=== PATIENT | male | born 1970 | race Two or more races ===

== ENCOUNTER 2020-05-02 12:05 | Inpatient (IN) | payer BC ==
[~2020-05-02] VITALS: Ht 167.6 cm; Wt 74.6 kg
--- NOTE | 2020-05-02 12:36 | NUR ---
PT IS A 49M COMPLAINING OF SORE THROAT, BACK PAIN, RASH AND FEVER X 4 DAYS. HE WAS SENT FROM URGENT CARE. THE RASH STARTED 3 DAYS AGO AND IS ON HIS FACE AND TRUNK. SPOUSE AT BEDSIDE, PROVIDER AT BEDSIDE FOR EVAL AND POC. BP AND SP02 MONITORS IN PLACE. CALL LIGHT WITHIN REACH.
[2020-05-02] MEDS ORDERED: COLE3.755 BLADIN (12:40)
[2020-05-02 13:00] LABS: BASOPHILS % (AUTO) 1 % (0-1); EOSINOPHILS % (AUTO) 0 % (1-7); LYMPHOCYTES % (AUTO) 16 % (22-44); MEAN CORPUSCULAR HEMOGLOBIN 31.4 pg (27.5-34.5); MEAN CORPUSCULAR HGB CONC 35.5 g/dL (33.2-36.2); MEAN PLATELET VOLUME 10.4 fL (7.4-10.4); MONOCYTES % (AUTO) 4 % (2-9); NEUTROPHILS % (AUTO) 79 % (42-75); PLATELET COUNT 102 x10^3/uL (130-400); RED BLOOD COUNT 4.94 x10^6/uL (4.38-5.82); RED CELL DISTRIBUTION WIDTH 13.8 % (9.4-14.8)
--- NOTE | 2020-05-02 13:00 | NUR ---
BREAK RN: PIV PLACED, IVF RUNNING. 2 SETS BLOOD CX COLLECTED BY SUPERINTENDENT OVERHEAD DISTRIBUTION. PT CONNECTED TO MONITORING. CALL LIGHT IN REACH. FAMILY AT BEDSIDE,.
[2020-05-02 13:01] LABS: MD NO
[2020-05-02 13:07] LABS: ALANINE AMINOTRANSFERASE 165 U/L (12-78); ALBUMIN 3.9 g/dL (3.4-5.0); ANION GAP 8 mmol/L (5-15); CALCIUM 8.4 mg/dL (8.5-10.1); CHLORIDE 99 mmol/L (98-107); CREATININE 0.99 mg/dL (0.7-1.3)
[2020-05-02 13:09] LABS: ALKALINE PHOSPHATASE 86 U/L (45-117); BILIRUBIN,TOTAL 0.4 mg/dL (0.2-1.0); TOTAL PROTEIN 7.5 g/dL (6.4-8.2)
[2020-05-02] MEDS ORDERED: SODIUM CHLORIDE FLUSH 10ML SYR IVF ONE (13:30)
[2020-05-02] MEDS ORDERED: SODIUM CHLORIDE 0.9% 1,000ML IVBOLUS ONE ×2 (13:30→16:30)
--- NOTE | 2020-05-02 13:53 | NUR ---
PT COMPLAINING OF 10/10 BACK PAIN. URINE COLLECTED AND SENT. MD NOTIFED PTS WANT OF PAIN MEDS. SPOUSE AT BEDSIDE, VITALS UPDATED. CALL LIGHT WITHIN REACH.
[2020-05-02 14:01] LABS: MICROSCOPIC AUTO
[2020-05-02] MEDS ORDERED: MORPHINE SULFATE 4 MG/ML, 1ML ONE ×2 (14:06→18:15)
[2020-05-02] MEDS ORDERED: ONDANSETRON 2MG/ML, 2ML ONE (14:06)
[2020-05-02] MEDS: MORPHINE SULFATE 4 MG/ML, 1ML IVPush PRN ×2 (14:08→18:18)
--- NOTE | 2020-05-02 14:11 | NUR ---
PT MEDICATED PER ORDERS, CALL LIGHT WITHIN REACH
[2020-05-02] MEDS ORDERED: CEFTRIAXONE PMX 1GM/50ML 50 ML IVPB ONE (14:30)
[2020-05-02] MEDS ORDERED: ONDANSETRON 2MG/ML, 2ML IVPush ONE (14:30)
[2020-05-02] MEDS ORDERED: CEFTRIAXONE PMX 1GM/50ML 50 ML ONE ×2 (14:33→21:16)
--- NOTE | 2020-05-02 15:15 | NUR ---
Antibiotics infused, pt states pain has resolved after morphine. Spouse at bedside. Call light within reach.
[2020-05-02] MEDS ORDERED: IBUPROFEN 600 MG TABLET ONE (15:20)
--- NOTE | 2020-05-02 15:25 | NUR ---
PT TEMP 102.7 MD NOTIFIED, COMPLETED COVID SWAB, MEDICATED PER EMAR. CALL LIGHT WITHIN REAWCH.
[2020-05-02] MEDS ORDERED: IBUPROFEN 600 MG TABLET PO ONE (15:30)
--- NOTE | 2020-05-02 16:08 | NUR ---
Pt pain is better but his temp is still 103.0. notified md. Will medicate per emar. spouse at bedside and call light within reach. all monitors in place.
[2020-05-02] MEDS ORDERED: ACETAMINOPHEN 500 MG TABLET PO ONE (16:30)
[2020-05-02] MEDS ORDERED: ACETAMINOPHEN 500 MG TABLET ONE (16:39)
--- NOTE | 2020-05-02 17:44 | NUR ---
PROVIDER AT BEDSIDE TO DISCUSS POC. VITALS UPDATED, SPOUSE AT BEDSIDE, CALL LIGHT WITHIN REACH.
--- NOTE | 2020-05-02 18:17 | NUR ---
PT STATES HIS BACK PAIN IS BACK UP TO AN 8/10. MEDICATED PER EMAR. CALL LIGHT WITHIN REACH
[2020-05-02] MEDS ORDERED: SODIUM CHLORIDE 0.9% 1,000 ML IV ONE (18:30)
--- NOTE | 2020-05-02 18:56 | NUR ---
REPORT FROM RICO SALCIDO
--- NOTE | 2020-05-02 18:56 | NUR ---
SOBEIDA CLAUDIO DELIVERED. HOSPITALIST AT BEDSIDE.
[2020-05-02] MEDS ORDERED: SODIUM CHLORIDE FLUSH 10ML SYR IVF PRN (19:00)
--- NOTE | 2020-05-02 19:01 | NUR ---
HOSPITALIST AT BEDSIDE
--- NOTE | 2020-05-02 19:02 | NUR ---
PT SITTING UPRIGHT ON ADRIANNE GOMEZ, VSS. PT EATING DINNER TRAY. PT DENIES ANY ADDITIONAL NEEDS AT THIS TIME. CALL LIGHT AND PERSONAL BELONGINGS WITHIN REACH. SPOUSE AT BEDSIDE.
--- NOTE | 2020-05-02 20:05 | NUR ---
PT SITTING UPRIGHT ON ADRIANNE GOMEZ, VSSelene. PT DENIES ANY ADDITIONAL NEEDS AT THIS TIME. CALL LIGHT AND PERSONAL BELONGINGS WITHIN REACH. SPOUSE AT BEDSIDE.
--- NOTE | 2020-05-02 20:29 | NUR ---
Pt to be admitted to 3N, room 338. Report called to HIRAM.
[2020-05-02] MEDS ORDERED: CEFTRIAXONE PMX 1GM/50ML 50 ML IV ONE (20:30)
[2020-05-02] MEDS ORDERED: DOCUSATE 100 MG CAPSULE PO PRN (22:00)
[2020-05-02] MEDS ORDERED: LIDODERM 5% PATCH TD PRN (22:00)
[2020-05-02] MEDS ORDERED: MELATONIN 5 MG TABLET PO PRN (22:00)
[2020-05-02] MEDS ORDERED: PHARMACY MAY ADJ FOR RENAL FX MC PRN (22:00)
[2020-05-02] MEDS ORDERED: LABETALOL 5MG/ML, 20ML IVPush PRN (22:00)
[2020-05-02 22:53] VITALS: BP 111/69
[2020-05-03] MEDS: HEPARIN 5,000 UNITS/ML, 1ML SQ SCH ×3 (00:32→15:55)
[2020-05-03] MEDS: LACTATED RINGERS 1,000 ML IV SCH ×3 (00:33→15:55)
[2020-05-03 01:27] VITALS: BP 110/71
[2020-05-03 05:33] LABS: BASOPHILS % (AUTO) 0 % (0-1); EOSINOPHILS % (AUTO) 0 % (1-7); LYMPHOCYTES % (AUTO) 31 % (22-44); MEAN CORPUSCULAR HEMOGLOBIN 30.8 pg (27.5-34.5); MEAN CORPUSCULAR HGB CONC 35.3 g/dL (33.2-36.2); MEAN PLATELET VOLUME 10.3 fL (7.4-10.4); MONOCYTES % (AUTO) 5 % (2-9); NEUTROPHILS % (AUTO) 63 % (42-75); PLATELET COUNT 91 x10^3/uL (130-400); RED BLOOD COUNT 4.51 x10^6/uL (4.38-5.82); RED CELL DISTRIBUTION WIDTH 13.6 % (9.4-14.8)
[2020-05-03 05:35] LABS: ALANINE AMINOTRANSFERASE 222 U/L (12-78); ALBUMIN 2.9 g/dL (3.4-5.0); ANION GAP 7 mmol/L (5-15); C-REACTIVE PROTEIN, QUANT 0.28 mg/dL (0.02-0.49); CALCIUM 7.5 mg/dL (8.5-10.1); CHLORIDE 102 mmol/L (98-107); CREATININE 0.66 mg/dL (0.7-1.3)
[2020-05-03 05:36] LABS: D-DIMER 3.03 ug/mlFEU (0.00-0.52); INTERNATIONAL NORMALIZED RATIO 1.07 (0.93-1.1); PROTHROMBIN TIME 11.4 Seconds (9.6-11.5)
[2020-05-03 05:39] LABS: HCT (SEDRATE) 39.3 % (39.2-51.8)
[2020-05-03] MEDS: NYSTATIN 500,000 UNITS/5 ML UDC PO SCH ×4 (05:47→20:30)
[2020-05-03 05:54] LABS: ALKALINE PHOSPHATASE 117 U/L (45-117); BILIRUBIN,TOTAL 0.4 mg/dL (0.2-1.0); CREATINE KINASE, TOTAL 1328 U/L (39-308); TOTAL PROTEIN 6.2 g/dL (6.4-8.2); TROPONIN I 0.023 ng/mL (0.000-0.045)
[2020-05-03 06:33] VITALS: BP 128/83
[2020-05-03 06:48] LABS: MD SCAN
[2020-05-03] MEDS ORDERED: COLESEVELAM HCL BLADIN SCH (09:00)
[2020-05-03 11:56] VITALS: BP 146/77
[2020-05-03] MEDS ORDERED: GUAIFENESIN/DM 200-20MG, 10ML UDC ONE (20:13)
[2020-05-03 20:22] VITALS: BP 135/82
[2020-05-03] MEDS: ACETAMINOPHEN 325 MG TABLET PO PRN (20:30)
[2020-05-03] MEDS: GUAIFENESIN/DM 100-10MG, 5ML UDC PO PRN (20:31)
[2020-05-03] MEDS: CEFTRIAXONE PMX 2GM/50ML 50 ML IVPB SCH (20:32)
[2020-05-04] MEDS: LACTATED RINGERS 1,000 ML IV SCH ×3 (01:04→16:30)
[2020-05-04] MEDS: HEPARIN 5,000 UNITS/ML, 1ML SQ SCH ×3 (01:04→16:47)
[2020-05-04 01:08] VITALS: BP 125/82
[2020-05-04 05:57] LABS: HCT (SEDRATE) 39.2 % (39.2-51.8)
[2020-05-04] MEDS: NYSTATIN 500,000 UNITS/5 ML UDC PO SCH ×4 (06:10→21:32)
[2020-05-04] MEDS: GUAIFENESIN/DM 100-10MG, 5ML UDC PO PRN ×2 (06:11→14:42)
[2020-05-04 06:12] LABS: BASOPHILS % (AUTO) 0 % (0-1); EOSINOPHILS % (AUTO) 0 % (1-7); LYMPHOCYTES % (AUTO) 38 % (22-44); MEAN CORPUSCULAR HEMOGLOBIN 31.2 pg (27.5-34.5); MEAN CORPUSCULAR HGB CONC 35.7 g/dL (33.2-36.2); MEAN PLATELET VOLUME 9.9 fL (7.4-10.4); MONOCYTES % (AUTO) 9 % (2-9); NEUTROPHILS % (AUTO) 53 % (42-75); PLATELET COUNT 99 x10^3/uL (130-400); RED BLOOD COUNT 4.53 x10^6/uL (4.38-5.82)
[2020-05-04 06:14] LABS: CHLORIDE 99 mmol/L (98-107)
[2020-05-04 06:33] LABS: MD NO
[2020-05-04 06:41] LABS: ALANINE AMINOTRANSFERASE 170 U/L (12-78); ALBUMIN 3.3 g/dL (3.4-5.0); ALKALINE PHOSPHATASE 113 U/L (45-117); ANION GAP 6 mmol/L (5-15); BILIRUBIN,TOTAL 0.5 mg/dL (0.2-1.0); CALCIUM 8.6 mg/dL (8.5-10.1); CREATINE KINASE, TOTAL 1320 U/L (39-308); CREATININE 0.69 mg/dL (0.7-1.3); TOTAL PROTEIN 6.5 g/dL (6.4-8.2)
[2020-05-04 06:51] VITALS: BP 126/78
[2020-05-04 13:41] VITALS: BP 144/80
[2020-05-04 20:03] VITALS: BP 134/80
[2020-05-04] MEDS: ACETAMINOPHEN 325 MG TABLET PO PRN (21:32)
[2020-05-04] MEDS: CEFTRIAXONE PMX 2GM/50ML 50 ML IVPB SCH (21:32)
[2020-05-05] MEDS: LACTATED RINGERS 1,000 ML IV SCH ×2 (01:10→08:37)
[2020-05-05] MEDS: HEPARIN 5,000 UNITS/ML, 1ML SQ SCH ×2 (01:10→08:37)
[2020-05-05 01:24] VITALS: BP 108/67
[2020-05-05 05:03] LABS: BASOPHILS % (AUTO) 0 % (0-1); EOSINOPHILS % (AUTO) 0 % (1-7); HCT (SEDRATE) 39.2 % (39.2-51.8); LYMPHOCYTES % (AUTO) 30 % (22-44); MEAN CORPUSCULAR HEMOGLOBIN 31.3 pg (27.5-34.5); MEAN CORPUSCULAR HGB CONC 35.6 g/dL (33.2-36.2); MEAN PLATELET VOLUME 9.2 fL (7.4-10.4); MONOCYTES % (AUTO) 15 % (2-9); NEUTROPHILS % (AUTO) 54 % (42-75); PLATELET COUNT 116 x10^3/uL (130-400); RED BLOOD COUNT 4.47 x10^6/uL (4.38-5.82); RED CELL DISTRIBUTION WIDTH 13.4 % (9.4-14.8)
[2020-05-05 05:12] LABS: MD NO
[2020-05-05 05:14] LABS: ALBUMIN 3.4 g/dL (3.4-5.0); ANION GAP 6 mmol/L (5-15); CALCIUM 8.8 mg/dL (8.5-10.1); CHLORIDE 101 mmol/L (98-107)
[2020-05-05 05:28] LABS: D-DIMER 1.23 ug/mlFEU (0.00-0.52); PROTHROMBIN TIME 10.7 Seconds (9.6-11.5)
[2020-05-05 05:33] LABS: ALANINE AMINOTRANSFERASE 174 U/L (12-78); ALKALINE PHOSPHATASE 124 U/L (45-117); BILIRUBIN,TOTAL 0.9 mg/dL (0.2-1.0); C-REACTIVE PROTEIN, QUANT 0.16 mg/dL (0.02-0.49); CREATINE KINASE, TOTAL 890 U/L (39-308); CREATININE 0.76 mg/dL (0.7-1.3); TOTAL PROTEIN 6.6 g/dL (6.4-8.2)
[2020-05-05] MEDS: NYSTATIN 500,000 UNITS/5 ML UDC PO SCH ×2 (06:12→11:00)
[2020-05-05 06:54] VITALS: BP 107/71
[2020-05-05] MEDS: GUAIFENESIN/DM 100-10MG, 5ML UDC PO PRN (08:36)
== END 2020-05-05 12:32 | disposition home or self-care (01) | DRG 872 ==
LOC: ED 12:58 → EDIP 18:16 → 3N 21:45 → 4EST 22:49 → 4WST 05-04 14:57 → DCLOUNGE 05-05 12:30
PROVIDERS: ADMIT Family Medicine; ATTEND Hospitalist
DX: A41.9 Sepsis, unspecified organism (principal); B37.0 Candidal stomatitis; J06.9 Acute upper respiratory infection, unspecified; E78.5 Hyperlipidemia, unspecified; D69.6 Thrombocytopenia, unspecified; E87.6 Hypokalemia; R63.0 Anorexia; Z20.822 Contact with and (suspected) exposure to COVID-19; Z82.3 Family history of stroke; Z82.49 Family history of ischemic heart disease and other diseases of the circulatory system; Z68.26 Body mass index [BMI] 26.0-26.9, adult; Z88.6 Allergy status to analgesic agent
CPT/HCPCS: 36415; 80053; 80074; 81001; 82550; 82728; 83036; 83605; 83615; 84145; 84484; 85025; 85379; 85384; 85610; 85651; 85730; 86140; 86592; 86765; 86780; 87040; 87635; 87806; 96361; 96365; 96375; 99291; G0378; J0696; J1644; J2405; G0475; J2270; J7030; J7120; U0003

== ENCOUNTER 2020-05-16 18:10 | Inpatient (IN) | payer BC ==
[~2020-05-16] VITALS: Ht 167.6 cm; Wt 71.4 kg
[~2020-05-16 18:10] MED LIST: COLE3.755 BLADIN
--- NOTE | 2020-05-16 18:19 | NUR ---
EKG TRIAGE, RESP ISO
--- NOTE | 2020-05-16 18:50 | NUR ---
PT TO ROOM 33 W/ C/O SOB, COUGH, FEVER, CP X 3 DAYS. PT DENIES ANY CLOSE CONTACT TO COVID POSITIVE PERSON. PT RESTING ON [facility]. NADN. MONITORS APPLIED.
[2020-05-16] MEDS ORDERED: SODIUM CHLORIDE FLUSH 10ML SYR IVF ONE (19:00)
[2020-05-16] MEDS ORDERED: SODIUM CHLORIDE 0.9% 1,000ML IVBOLUS ONE (19:00)
[2020-05-16 19:39] LABS: MEAN CORPUSCULAR HEMOGLOBIN 31.7 pg (27.5-34.5); MEAN CORPUSCULAR HGB CONC 35.5 g/dL (33.2-36.2); MEAN PLATELET VOLUME 9.1 fL (7.4-10.4); PLATELET COUNT 176 x10^3/uL (130-400); RED BLOOD COUNT 3.97 x10^6/uL (4.38-5.82); RED CELL DISTRIBUTION WIDTH 14.2 % (9.4-14.8)
[2020-05-16 19:42] LABS: ALANINE AMINOTRANSFERASE 123 U/L (12-78); ALBUMIN 2.8 g/dL (3.4-5.0); ANION GAP 8 mmol/L (5-15); CALCIUM 7.9 mg/dL (8.5-10.1); CHLORIDE 97 mmol/L (98-107); CREATININE 0.86 mg/dL (0.7-1.3)
[2020-05-16 19:44] LABS: ALKALINE PHOSPHATASE 268 U/L (45-117); BILIRUBIN,TOTAL 1.8 mg/dL (0.2-1.0); TOTAL PROTEIN 6.8 g/dL (6.4-8.2)
--- NOTE | 2020-05-16 19:52 | NUR ---
PT RESTING ON GURNEY. NADN. SMITH.
[2020-05-16 19:56] LABS: MD YES
[2020-05-16 20:04] LABS: BAND#(MANUAL) 0.38 x10^3/uL; BANDS%(MANUAL) 4 % (0-7); LYMPH#(MANUAL) 0.75 x10^3/uL (1-3.4); LYMPHS% (MANUAL) 8 % (22-44); MONOS#(MANUAL) 0.56 x10^3/uL (0.3-2.7); MONOS% (MANUAL) 6 % (2-9); REACTIVE LYMPHS # (MANUAL) 2.16 x10^3/uL (0-0); REACTIVE LYMPHS % (MANUAL) 23 % (0-0); SEG#(MANUAL) 5.55 x10^3/uL (1.8-6.8); SEGS% (MANUAL) 59 % (42-75)
[2020-05-16 20:05] LABS: <RBC MORPHOLOGY> NORMAL
[2020-05-16 20:06] LABS: <PLATELET ESTIMATE> ADEQUATE; <PLT MORPHOLOGY> NORMAL PLT MORPH
--- NOTE | 2020-05-16 20:39 | NUR ---
PT RESTING ON JASON. NADN. GAS. US AT BEDSIDE.
--- NOTE | 2020-05-16 20:50 | NUR ---
REPORT FROM [facility] TRANSFER OF CARE AT THIS TIME
--- NOTE | 2020-05-16 20:51 | NUR ---
REPORT GIVEN TO LOLY BROWER.
--- NOTE | 2020-05-16 21:22 | NUR ---
ERP AT BEDSIDE FOR RECHECK
--- NOTE | 2020-05-16 21:41 | NUR ---
DR. HAM AT BEDSIDE FOR POC AT THIS TIME
[2020-05-16] MEDS ORDERED: ONDANSETRON 2MG/ML, 2ML IVPush PRN ×2 (22:00→22:30)
[2020-05-16] MEDS ORDERED: MORPHINE SULFATE 4 MG/ML, 1ML IVPush PRN (22:00)
[2020-05-16] MEDS ORDERED: SODIUM CHLORIDE 0.9% 1,000 ML IV ONE (22:00)
[2020-05-16] MEDS ORDERED: SODIUM CHLORIDE FLUSH 10ML SYR IVF PRN (22:00)
[2020-05-16 22:02] LABS: BILIRUBIN, DIRECT 1.2 mg/dL (0.1-0.2); BILIRUBIN,INDIRECT 0.5 mg/dL (0.0-2.0); BILIRUBIN,TOTAL 1.7 mg/dL (0.2-1.0)
--- NOTE | 2020-05-16 22:02 | NUR ---
PT RESTING ON GURNEY DENIES NEEDS AT THIS TIME, STS DOES NOT WANT PAIN MEDICATION. PT EDUCATED TO CALL IF HE CHANGES HIS MIND.
[2020-05-16] MEDS ORDERED: DOCUSATE 100 MG CAPSULE PO PRN (22:30)
[2020-05-16] MEDS ORDERED: OXYcodone IR 5MG TABLET PO PRN (22:30)
[2020-05-16] MEDS ORDERED: BISACODYL 10 MG SUPP PR PRN (22:30)
[2020-05-16] MEDS ORDERED: PROMETHAZINE 25 MG/ML, 1ML IM PRN (22:30)
[2020-05-16] MEDS ORDERED: morphine SULFATE 10 MG/ML, 1ML IVPush PRN (22:30)
[2020-05-16] MEDS ORDERED: POLYETHYLENE GLYCOL 17 GM PACKET PO PRN (22:30)
--- NOTE | 2020-05-16 22:40 | NUR ---
REPORT CALLED TO TARYN VALDEZ READY FOR TRANSFER TO [facility]
[2020-05-16] MEDS ORDERED: POTASSIUM CHLORIDE 40 MEQ in SODIUM CHLORIDE 0.9% 500 ML IV ONE (23:00)
[2020-05-16 23:05] VITALS: BP 140/86
[2020-05-16] MEDS: SODIUM CHLORIDE 0.9% 1,000 ML IV SCH (23:41)
[2020-05-17 03:30] VITALS: BP 143/88
[2020-05-17 06:13] LABS: MEAN CORPUSCULAR HEMOGLOBIN 32.2 pg (27.5-34.5); MEAN CORPUSCULAR HGB CONC 35.4 g/dL (33.2-36.2); MEAN PLATELET VOLUME 9.2 fL (7.4-10.4); PLATELET COUNT 188 x10^3/uL (130-400); RED BLOOD COUNT 3.97 x10^6/uL (4.38-5.82); RED CELL DISTRIBUTION WIDTH 13.9 % (9.4-14.8)
[2020-05-17 06:21] LABS: CHLORIDE 103 mmol/L (98-107)
[2020-05-17 06:33] LABS: ANION GAP 4 mmol/L (5-15); CALCIUM 8.1 mg/dL (8.5-10.1); CREATININE 0.66 mg/dL (0.7-1.3)
[2020-05-17 06:34] LABS: ALANINE AMINOTRANSFERASE 144 U/L (12-78); ALBUMIN 2.7 g/dL (3.4-5.0); ALKALINE PHOSPHATASE 274 U/L (45-117); BILIRUBIN,TOTAL 2.1 mg/dL (0.2-1.0); CHOL/HDL RATIO 2.3; CHOLESTEROL, TOTAL 110 mg/dL (140-239); HDL CHOL % 44 % (26-37); HDL CHOLESTEROL (DIRECT) 48 mg/dL (40-60); LDL CHOLESTEROL,CALCULATED 32 mg/dL (54-169); LDL/HDL RATIO 0.7 (0.5-3.0); TRIGLYCERIDES 152 mg/dL (50-200); VLDL CHOLESTEROL 30 mg/dL (0-25)
[2020-05-17 07:05] VITALS: BP 148/78
[2020-05-17 07:44] LABS: MD YES
[2020-05-17 07:45] LABS: BAND#(MANUAL) 0.48 x10^3/uL; BANDS%(MANUAL) 5 % (0-7)
[2020-05-17 07:47] LABS: MONOS#(MANUAL) 0.67 x10^3/uL (0.3-2.7); MONOS% (MANUAL) 7 % (2-9); SEG#(MANUAL) 4.47 x10^3/uL (1.8-6.8); SEGS% (MANUAL) 47 % (42-75)
[2020-05-17 07:48] LABS: <PLATELET ESTIMATE> ADEQUATE; <PLT MORPHOLOGY> NORMAL PLT MORPH; <RBC MORPHOLOGY> NORMAL; LYMPH#(MANUAL) 3.33 x10^3/uL (1-3.4); LYMPHS% (MANUAL) 35 % (22-44); REACTIVE LYMPHS # (MANUAL) 0.57 x10^3/uL (0-0); REACTIVE LYMPHS % (MANUAL) 6 % (0-0); SMUDGE CELLS 1+
[2020-05-17] MEDS: SODIUM CHLORIDE 0.9% 1,000 ML IV SCH ×2 (08:49→21:07)
[2020-05-17 13:32] VITALS: BP 145/79
[2020-05-17] MEDS ORDERED: ACETAMINOPHEN 325 MG TABLET ONE (13:33)
[2020-05-17] MEDS: ACETAMINOPHEN 325 MG TABLET PO PRN (13:35)
[2020-05-17] MEDS: PIPERACILLIN/TAZO/PMX 3.375GM 50 ML IV SCH ×2 (14:18→19:51)
[2020-05-17] MEDS ORDERED: GADOTERATE 10 MMOL/20ML SYR ONE (17:37)
[2020-05-17 20:19] VITALS: BP 138/65
[2020-05-17 20:52] VITALS: BP 149/88
[2020-05-17] MEDS ORDERED: ACETAMINOPHEN 500 MG TABLET PO ONE (21:00)
[2020-05-17 22:59] LABS: MEAN CORPUSCULAR HEMOGLOBIN 31.3 pg (27.5-34.5); MEAN CORPUSCULAR HGB CONC 35.6 g/dL (33.2-36.2); MEAN PLATELET VOLUME 9.2 fL (7.4-10.4); PLATELET COUNT 191 x10^3/uL (130-400); RED BLOOD COUNT 3.73 x10^6/uL (4.38-5.82); RED CELL DISTRIBUTION WIDTH 13.9 % (9.4-14.8)
[2020-05-17 23:08] LABS: ALANINE AMINOTRANSFERASE 175 U/L (12-78); ALBUMIN 2.7 g/dL (3.4-5.0); ANION GAP 8 mmol/L (5-15); CALCIUM 7.4 mg/dL (8.5-10.1); CHLORIDE 98 mmol/L (98-107); CREATININE 0.78 mg/dL (0.7-1.3)
[2020-05-17 23:10] LABS: ALKALINE PHOSPHATASE 310 U/L (45-117); BILIRUBIN,TOTAL 2.3 mg/dL (0.2-1.0); TOTAL PROTEIN 6.7 g/dL (6.4-8.2)
[2020-05-17 23:23] LABS: MD YES
[2020-05-17 23:27] LABS: <RBC MORPHOLOGY> NORMAL; BAND#(MANUAL) 0.55 x10^3/uL; BANDS%(MANUAL) 5 % (0-7); LYMPH#(MANUAL) 2.09 x10^3/uL (1-3.4); LYMPHS% (MANUAL) 19 % (22-44); MONOS% (MANUAL) 10 % (2-9); REACTIVE LYMPHS # (MANUAL) 0.66 x10^3/uL (0-0); REACTIVE LYMPHS % (MANUAL) 6 % (0-0); SEGS% (MANUAL) 60 % (42-75)
[2020-05-17 23:28] LABS: <PLATELET ESTIMATE> ADEQUATE; <PLT MORPHOLOGY> NORMAL PLT MORPH; SMUDGE CELLS 1+
[2020-05-18 01:03] VITALS: BP 123/68
[2020-05-18] MEDS: SODIUM CHLORIDE 0.9% 1,000 ML IV SCH (02:00)
[2020-05-18] MEDS: PIPERACILLIN/TAZO/PMX 3.375GM 50 ML IV SCH ×4 (02:30→22:11)
[2020-05-18 05:45] LABS: ALBUMIN 2.7 g/dL (3.4-5.0); ANION GAP 9 mmol/L (5-15); CALCIUM 7.7 mg/dL (8.5-10.1); CHLORIDE 99 mmol/L (98-107)
[2020-05-18 05:49] LABS: ALANINE AMINOTRANSFERASE 182 U/L (12-78); ALKALINE PHOSPHATASE 301 U/L (45-117); BILIRUBIN,TOTAL 2.4 mg/dL (0.2-1.0); CREATININE 0.71 mg/dL (0.7-1.3); TOTAL PROTEIN 6.9 g/dL (6.4-8.2)
[2020-05-18 06:08] LABS: MEAN CORPUSCULAR HEMOGLOBIN 30.6 pg (27.5-34.5); MEAN PLATELET VOLUME 8.8 fL (7.4-10.4); PLATELET COUNT 231 x10^3/uL (130-400); RED BLOOD COUNT 3.84 x10^6/uL (4.38-5.82); RED CELL DISTRIBUTION WIDTH 14.1 % (9.4-14.8)
[2020-05-18 06:19] LABS: MD YES
[2020-05-18 06:22] LABS: BAND#(MANUAL) 0.12 x10^3/uL; BANDS%(MANUAL) 1 % (0-7); LYMPH#(MANUAL) 1.96 x10^3/uL (1-3.4); LYMPHS% (MANUAL) 17 % (22-44); MONOS#(MANUAL) 2.07 x10^3/uL (0.3-2.7); MONOS% (MANUAL) 18 % (2-9); REACTIVE LYMPHS # (MANUAL) 0.69 x10^3/uL (0-0); REACTIVE LYMPHS % (MANUAL) 6 % (0-0); SEG#(MANUAL) 6.67 x10^3/uL (1.8-6.8); SEGS% (MANUAL) 58 % (42-75)
[2020-05-18 06:23] LABS: <PLATELET ESTIMATE> ADEQUATE; <PLT MORPHOLOGY> NORMAL PLT MORPH; <RBC MORPHOLOGY> NORMAL; SMUDGE CELLS 1+
[2020-05-18] MEDS ORDERED: POTASSIUM CHLORIDE 40 MEQ in SODIUM CHLORIDE 0.9% 500 ML IV ONE (07:00)
[2020-05-18 07:49] VITALS: BP 151/92
[2020-05-18] MEDS: ACETAMINOPHEN 325 MG TABLET PO PRN (08:07)
[2020-05-18] MEDS ORDERED: DIAZEPAM 5 MG/ML, 2ML IV ONE (10:00)
[2020-05-18] MEDS ORDERED: FOLIC ACID 5 MG/ML IM ONE (10:00)
[2020-05-18] MEDS ORDERED: LORazepam 2 MG/ML, 1ML IV PRN ×5 (10:00)
[2020-05-18 10:48] LABS: AMPHETAMINE SCREEN, URINE Negative (Negative); BARBITURATE SCREEN, URINE Negative (Negative); BENZODIAZEPINE SCREEN, URINE Negative (Negative); CANNABINOID SCREEN, URINE Negative (Negative); COCAINE SCREEN, URINE Negative (Negative); METHADONE SCREEN, URINE Negative (Negative); OPIATE SCREEN, URINE Negative (Negative)
[2020-05-18] MEDS ORDERED: FOLIC ACID 1 MG TABLET PO ONE (12:00)
[2020-05-18 12:56] VITALS: BP 152/81
[2020-05-18] MEDS ORDERED: CHLORHEXIDINE 15 ML UDC MM ONE (14:00)
[2020-05-18] MEDS ORDERED: OMNIPAQUE 350 MG/ML, 50 ML BOTTLE ONE (14:25)
[2020-05-18] MEDS ORDERED: FENTANYL PF 250 MCG/5ML ONE (16:23)
[2020-05-18] MEDS ORDERED: MIDAZOLAM 1 MG/ML, 2ML ONE (16:23)
[2020-05-18] MEDS ORDERED: BUPIVACAINE/PF-EPI 0.25% 1:200K INFIL ONE (16:45)
[2020-05-18] MEDS ORDERED: ROCURONIUM 10MG/ML,5ML ONE (16:52)
[2020-05-18] MEDS ORDERED: ONDANSETRON 2MG/ML, 2ML ONE (16:52)
[2020-05-18] MEDS ORDERED: CEFOTETAN 1 GM ONE (16:52)
[2020-05-18] MEDS ORDERED: PROPOFOL 10 MG/ML, 20ML ONE (16:52)
[2020-05-18] MEDS ORDERED: OMNIPAQUE 350 MG/ML, 50 ML BOTTLE IV ONE (17:57)
[2020-05-18] MEDS ORDERED: FENTANYL PF 100 MCG/2ML ONE ×3 (17:58→19:04)
[2020-05-18] MEDS ORDERED: ONDANSETRON 2MG/ML, 2ML IVPush PRN (18:30)
[2020-05-18] MEDS ORDERED: LABETALOL 5MG/ML, 20ML IV PRN (18:30)
[2020-05-18] MEDS ORDERED: MEPERIDINE/PF 25MG/0.5ML IVPush PRN (18:30)
[2020-05-18] MEDS ORDERED: MIDAZOLAM 1 MG/ML, 2ML IV PRN (18:30)
[2020-05-18] MEDS ORDERED: PROMETHAZINE 12.5 MG SUPP PR PRN (18:30)
[2020-05-18] MEDS ORDERED: OXYcodone 5 MG/5 ML ORAL.SOL UDC PO PRN (18:30)
[2020-05-18] MEDS ORDERED: PROMETHAZINE 25 MG/ML, 1ML IVPush PRN (18:30)
[2020-05-18] MEDS ORDERED: ALBUTEROL SULFATE 2.5 MG/3 ML NPPB PRN (18:30)
[2020-05-18] MEDS ORDERED: EPHEDRINE 50 MG/ML, 1ML IVPush PRN (18:30)
[2020-05-18] MEDS ORDERED: DIPHENHYDRAMINE 50 MG/ML, 1ML IVPush PRN ×2 (18:30)
[2020-05-18] MEDS ORDERED: DIAZEPAM 5 MG/ML, 2ML IVPush PRN (18:30)
[2020-05-18] MEDS ORDERED: ACETAMINOPHEN 325 MG TABLET PO PRN (18:30)
[2020-05-18] MEDS ORDERED: HYDROmorphone 1 MG/ML, 1ML INJ IVPush PRN (18:30)
[2020-05-18] MEDS ORDERED: hydrALAzine 20 MG/ML, 1ML IV PRN (18:30)
[2020-05-18] MEDS: FENTANYL PF 100 MCG/2ML IV PRN ×2 (19:05→19:10)
[2020-05-18] MEDS ORDERED: LABETALOL 5MG/ML, 20ML ONE (19:10)
[2020-05-18] MEDS ORDERED: PROMETHAZINE 25 MG/ML, 1ML ONE (19:15)
[2020-05-18] MEDS ORDERED: MIDAZOLAM 1 MG/ML, 5ML ONE (19:57)
[2020-05-18] MEDS ORDERED: DIAZEPAM 5 MG/ML, 2ML ONE (20:22)
[2020-05-18] MEDS ORDERED: MIDAZOLAM 1 MG/ML, 5ML IVPush ONE (20:30)
[2020-05-18 21:15] VITALS: BP 155/95
[2020-05-18] MEDS ORDERED: LACTATED RINGERS 1,000 ML IV SCH (22:00)
[2020-05-18] MEDS ORDERED: ONDANSETRON 2MG/ML, 2ML IV PRN (22:00)
[2020-05-18] MEDS ORDERED: morphine SULFATE 10 MG/ML, 1ML IV PRN (22:00)
[2020-05-19] VITALS (7 sets, daily range): BP systolic 119–166; BP diastolic 69–98
[2020-05-19] MEDS: LACTATED RINGERS 1,000 ML IV SCH (01:20)
[2020-05-19] MEDS: PIPERACILLIN/TAZO/PMX 3.375GM 50 ML IV SCH ×4 (04:13→23:47)
[2020-05-19 05:33] LABS: MEAN CORPUSCULAR HEMOGLOBIN 30.9 pg (27.5-34.5); MEAN CORPUSCULAR HGB CONC 35.3 g/dL (33.2-36.2); MEAN PLATELET VOLUME 8.8 fL (7.4-10.4); PLATELET COUNT 234 x10^3/uL (130-400); RED BLOOD COUNT 3.64 x10^6/uL (4.38-5.82); RED CELL DISTRIBUTION WIDTH 14.1 % (9.4-14.8)
[2020-05-19 05:45] LABS: ALBUMIN 2.4 g/dL (3.4-5.0); CHLORIDE 98 mmol/L (98-107)
[2020-05-19 05:50] LABS: ALANINE AMINOTRANSFERASE 233 U/L (12-78); ALKALINE PHOSPHATASE 247 U/L (45-117); ANION GAP 7 mmol/L (5-15); BILIRUBIN,TOTAL 1.8 mg/dL (0.2-1.0); CALCIUM 7.3 mg/dL (8.5-10.1); CREATININE 0.69 mg/dL (0.7-1.3); TOTAL PROTEIN 6.4 g/dL (6.4-8.2)
[2020-05-19] MEDS: KETOROLAC 30 MG/1 ML IV PRN ×2 (05:50→15:57)
[2020-05-19 06:02] LABS: MD YES
[2020-05-19 06:04] LABS: <RBC MORPHOLOGY> NORMAL; BAND#(MANUAL) 0.13 x10^3/uL; BANDS%(MANUAL) 1 % (0-7); LYMPH#(MANUAL) 1.85 x10^3/uL (1-3.4); LYMPHS% (MANUAL) 14 % (22-44); MONOS#(MANUAL) 1.72 x10^3/uL (0.3-2.7); MONOS% (MANUAL) 13 % (2-9); REACTIVE LYMPHS # (MANUAL) 0.92 x10^3/uL (0-0); REACTIVE LYMPHS % (MANUAL) 7 % (0-0); SEG#(MANUAL) 8.58 x10^3/uL (1.8-6.8); SEGS% (MANUAL) 65 % (42-75)
[2020-05-19 06:05] LABS: <PLATELET ESTIMATE> ADEQUATE; <PLT MORPHOLOGY> NORMAL PLT MORPH; SMUDGE CELLS 1+
[2020-05-19] MEDS: SODIUM CHLORIDE FLUSH 10ML SYR IVF SCH ×2 (11:49→20:49)
[2020-05-19] MEDS: MULTIVITAMINS/MINERALS TABLET PO SCH (11:49)
[2020-05-19] MEDS ORDERED: LORazepam 2 MG/ML, 1ML IVPush ONE (12:30)
[2020-05-19 17:15] LABS: GLUCOSE, CSF 60 mg/dL (40-80); TOTAL PROTEIN,CSF 127 mg/dL (15-45)
[2020-05-19] MEDS: ACETAMINOPHEN 325 MG TABLET PO PRN (20:41)
[2020-05-20 01:07] VITALS: BP 152/97
[2020-05-20] MEDS: LACTATED RINGERS 1,000 ML IV SCH ×2 (06:00→14:18)
[2020-05-20] MEDS: PIPERACILLIN/TAZO/PMX 3.375GM 50 ML IV SCH ×3 (06:24→21:01)
[2020-05-20 08:00] VITALS: BP 178/91
[2020-05-20] MEDS ORDERED: THIAMINE 100 MG in DEXTROSE 5% 50 ML IVPB SCH (09:00)
[2020-05-20] MEDS: THIAMINE 100MG TABLET PO SCH (09:21)
[2020-05-20] MEDS: ACETAMINOPHEN 325 MG TABLET PO PRN (09:21)
[2020-05-20] MEDS: MULTIVITAMINS/MINERALS TABLET PO SCH (09:21)
[2020-05-20] MEDS: SODIUM CHLORIDE FLUSH 10ML SYR IVF SCH ×2 (09:22→21:00)
[2020-05-20 10:02] LABS: MEAN CORPUSCULAR HEMOGLOBIN 30.1 pg (27.5-34.5); MEAN CORPUSCULAR HGB CONC 34.8 g/dL (33.2-36.2); MEAN PLATELET VOLUME 8.4 fL (7.4-10.4); PLATELET COUNT 324 x10^3/uL (130-400); RED BLOOD COUNT 4.02 x10^6/uL (4.38-5.82); RED CELL DISTRIBUTION WIDTH 14.1 % (9.4-14.8)
[2020-05-20 10:04] LABS: MD YES
[2020-05-20 10:22] LABS: LYMPH#(MANUAL) 0.97 x10^3/uL (1-3.4); LYMPHS% (MANUAL) 6 % (22-44); MONOS#(MANUAL) 2.11 x10^3/uL (0.3-2.7); MONOS% (MANUAL) 13 % (2-9); POLYCHROMASIA 1+; REACTIVE LYMPHS # (MANUAL) 0.97 x10^3/uL (0-0); REACTIVE LYMPHS % (MANUAL) 6 % (0-0); SEG#(MANUAL) 12.15 x10^3/uL (1.8-6.8); SEGS% (MANUAL) 75 % (42-75)
[2020-05-20 10:23] LABS: <PLATELET ESTIMATE> ADEQUATE; LARGE PLATELETS 1+
[2020-05-20 10:24] LABS: SMUDGE CELLS 1+
[2020-05-20 10:55] LABS: ALANINE AMINOTRANSFERASE 184 U/L (12-78); ALBUMIN 2.5 g/dL (3.4-5.0); ANION GAP 8 mmol/L (5-15); CALCIUM 7.8 mg/dL (8.5-10.1); CHLORIDE 94 mmol/L (98-107)
[2020-05-20 10:57] LABS: ALKALINE PHOSPHATASE 241 U/L (45-117); BILIRUBIN,TOTAL 1.9 mg/dL (0.2-1.0); TOTAL PROTEIN 7.3 g/dL (6.4-8.2)
[2020-05-20 14:00] VITALS: BP 151/87
[2020-05-20] MEDS ORDERED: DEXAMETHASONE 4 MG/ML, 1ML ONE (16:23)
[2020-05-20] MEDS ORDERED: SUGAMMADEX 200 MG/2 ML IVPush ONE (16:23)
[2020-05-20 19:24] VITALS: BP 164/98
[2020-05-20] MEDS: NS + 40MEQ KCL 1,000 ML IV SCH (23:17)
[2020-05-21] MEDS: PIPERACILLIN/TAZO/PMX 3.375GM 50 ML IV SCH ×4 (02:30→21:12)
[2020-05-21 02:42] VITALS: BP 170/79
[2020-05-21 07:25] VITALS: BP 145/88
[2020-05-21 09:06] LABS: MEAN CORPUSCULAR HEMOGLOBIN 30.3 pg (27.5-34.5); MEAN PLATELET VOLUME 9.1 fL (7.4-10.4); PLATELET COUNT 310 x10^3/uL (130-400); RED BLOOD COUNT 3.77 x10^6/uL (4.38-5.82); RED CELL DISTRIBUTION WIDTH 14.1 % (9.4-14.8)
[2020-05-21 09:07] LABS: MD YES
[2020-05-21 09:14] LABS: ALANINE AMINOTRANSFERASE 121 U/L (12-78); ALBUMIN 2.3 g/dL (3.4-5.0); ANION GAP 8 mmol/L (5-15); CALCIUM 7.8 mg/dL (8.5-10.1); CHLORIDE 95 mmol/L (98-107); CREATININE 0.59 mg/dL (0.7-1.3)
[2020-05-21 09:17] LABS: ALKALINE PHOSPHATASE 193 U/L (45-117); BILIRUBIN,TOTAL 1.6 mg/dL (0.2-1.0); TOTAL PROTEIN 6.9 g/dL (6.4-8.2)
[2020-05-21] MEDS: MULTIVITAMINS/MINERALS TABLET PO SCH (09:26)
[2020-05-21] MEDS: NS + 40MEQ KCL 1,000 ML IV SCH ×2 (09:26→21:12)
[2020-05-21] MEDS: THIAMINE 100MG TABLET PO SCH (09:26)
[2020-05-21] MEDS: SODIUM CHLORIDE FLUSH 10ML SYR IVF SCH ×2 (09:28→21:00)
[2020-05-21 09:32] LABS: <PLATELET ESTIMATE> ADEQUATE; <PLT MORPHOLOGY> NORMAL PLT MORPH; <RBC MORPHOLOGY> NORMAL; LYMPH#(MANUAL) 1.52 x10^3/uL (1-3.4); LYMPHS% (MANUAL) 9 % (22-44); MONOS#(MANUAL) 0.68 x10^3/uL (0.3-2.7); MONOS% (MANUAL) 4 % (2-9); REACTIVE LYMPHS # (MANUAL) 1.18 x10^3/uL (0-0); REACTIVE LYMPHS % (MANUAL) 7 % (0-0); SEG#(MANUAL) 13.52 x10^3/uL (1.8-6.8); SEGS% (MANUAL) 80 % (42-75); SMUDGE CELLS 1+
[2020-05-21 13:02] VITALS: BP 153/82
[2020-05-21] MEDS: POTASSIUM CHLORIDE 20 MEQ TAB.ER.PRT PO SCH (18:28)
[2020-05-21 19:25] VITALS: BP 139/80
[2020-05-22 01:29] VITALS: BP 165/82
[2020-05-22] MEDS: PIPERACILLIN/TAZO/PMX 3.375GM 50 ML IV SCH ×4 (03:39→21:37)
[2020-05-22 05:25] LABS: MEAN CORPUSCULAR HEMOGLOBIN 30.5 pg (27.5-34.5); MEAN CORPUSCULAR HGB CONC 35.1 g/dL (33.2-36.2); MEAN PLATELET VOLUME 8.8 fL (7.4-10.4); PLATELET COUNT 342 x10^3/uL (130-400); RED BLOOD COUNT 3.74 x10^6/uL (4.38-5.82); RED CELL DISTRIBUTION WIDTH 14.3 % (9.4-14.8)
[2020-05-22 05:28] LABS: MD YES
[2020-05-22 05:32] LABS: ALBUMIN 2.3 g/dL (3.4-5.0); ANION GAP 8 mmol/L (5-15); CALCIUM 8.1 mg/dL (8.5-10.1); CHLORIDE 98 mmol/L (98-107)
[2020-05-22 05:36] LABS: ALANINE AMINOTRANSFERASE 103 U/L (12-78); ALKALINE PHOSPHATASE 233 U/L (45-117); BILIRUBIN,TOTAL 1.7 mg/dL (0.2-1.0); CREATININE 0.57 mg/dL (0.7-1.3); TOTAL PROTEIN 7.3 g/dL (6.4-8.2)
[2020-05-22 05:58] LABS: BAND#(MANUAL) 0.18 x10^3/uL; BANDS%(MANUAL) 1 % (0-7); LYMPH#(MANUAL) 2.01 x10^3/uL (1-3.4); LYMPHS% (MANUAL) 11 % (22-44); METAMYELOCYTES# (MANUAL) 0.37 x10^3/uL (0-0); METAMYELOCYTES% (MANUAL) 2 % (0-1); MONOS#(MANUAL) 1.28 x10^3/uL (0.3-2.7); MONOS% (MANUAL) 7 % (2-9); MYELOCYTES# (MANUAL) 0.18 x10^3/uL (0-0); MYELOCYTES% (MANUAL) 1 % (0-0); SEG#(MANUAL) 14.27 x10^3/uL (1.8-6.8); SEGS% (MANUAL) 78 % (42-75)
[2020-05-22 05:59] LABS: <PLATELET ESTIMATE> ADEQUATE; <PLT MORPHOLOGY> NORMAL PLT MORPH; <RBC MORPHOLOGY> NORMAL; SMUDGE CELLS 1+
[2020-05-22 08:06] VITALS: BP 154/92
[2020-05-22] MEDS: NS + 40MEQ KCL 1,000 ML IV SCH ×2 (08:07→18:47)
[2020-05-22] MEDS: MULTIVITAMINS/MINERALS TABLET PO SCH (08:08)
[2020-05-22] MEDS: SODIUM CHLORIDE FLUSH 10ML SYR IVF SCH ×2 (08:08→21:37)
[2020-05-22] MEDS: THIAMINE 100MG TABLET PO SCH (08:08)
[2020-05-22] MEDS: POTASSIUM CHLORIDE 20 MEQ TAB.ER.PRT PO SCH ×2 (08:08→17:52)
[2020-05-22 14:15] VITALS: BP 164/77
[2020-05-22 20:43] VITALS: BP 182/99
[2020-05-22 20:47] VITALS: BP 175/104
[2020-05-22] MEDS: hydrALAzine 20 MG/ML, 1ML IVPush PRN (21:37)
[2020-05-23 01:06] VITALS: BP 122/75
[2020-05-23] MEDS: PIPERACILLIN/TAZO/PMX 3.375GM 50 ML IV SCH ×4 (04:15→22:14)
[2020-05-23 05:20] LABS: MEAN CORPUSCULAR HEMOGLOBIN 30.2 pg (27.5-34.5); MEAN CORPUSCULAR HGB CONC 34.9 g/dL (33.2-36.2); MEAN PLATELET VOLUME 8.8 fL (7.4-10.4); PLATELET COUNT 394 x10^3/uL (130-400); RED BLOOD COUNT 3.97 x10^6/uL (4.38-5.82); RED CELL DISTRIBUTION WIDTH 14.7 % (9.4-14.8)
[2020-05-23 05:30] LABS: ALBUMIN 2.4 g/dL (3.4-5.0); ANION GAP 7 mmol/L (5-15); CALCIUM 8.5 mg/dL (8.5-10.1); CHLORIDE 101 mmol/L (98-107)
[2020-05-23 05:35] LABS: ALANINE AMINOTRANSFERASE 89 U/L (12-78); ALKALINE PHOSPHATASE 173 U/L (45-117); BILIRUBIN,TOTAL 1.4 mg/dL (0.2-1.0); CREATININE 0.58 mg/dL (0.7-1.3); TOTAL PROTEIN 7.8 g/dL (6.4-8.2)
[2020-05-23 05:53] LABS: MD YES
[2020-05-23 05:55] LABS: <PLATELET ESTIMATE> ADEQUATE; <PLT MORPHOLOGY> NORMAL PLT MORPH; LYMPH#(MANUAL) 2.91 x10^3/uL (1-3.4); LYMPHS% (MANUAL) 17 % (22-44); MONOS#(MANUAL) 2.39 x10^3/uL (0.3-2.7); MONOS% (MANUAL) 14 % (2-9); MYELOCYTES# (MANUAL) 0.17 x10^3/uL (0-0); MYELOCYTES% (MANUAL) 1 % (0-0); POLYCHROMASIA 1+; REACTIVE LYMPHS # (MANUAL) 1.37 x10^3/uL (0-0); REACTIVE LYMPHS % (MANUAL) 8 % (0-0); SEG#(MANUAL) 10.26 x10^3/uL (1.8-6.8); SEGS% (MANUAL) 60 % (42-75); SMUDGE CELLS 1+
[2020-05-23 07:52] VITALS: BP 147/100
[2020-05-23] MEDS: MULTIVITAMINS/MINERALS TABLET PO SCH (08:33)
[2020-05-23] MEDS: SODIUM CHLORIDE FLUSH 10ML SYR IVF SCH ×2 (08:33→22:26)
[2020-05-23] MEDS: THIAMINE 100MG TABLET PO SCH (08:33)
[2020-05-23] MEDS: POTASSIUM CHLORIDE 20 MEQ TAB.ER.PRT PO SCH ×2 (08:33→16:39)
[2020-05-23] MEDS: NS + 40MEQ KCL 1,000 ML IV SCH ×2 (08:34→22:26)
[2020-05-23 09:10] VITALS: BP 144/92
[2020-05-23 12:00] VITALS: BP 186/98
[2020-05-23] MEDS: hydrALAzine 20 MG/ML, 1ML IVPush PRN (12:27)
[2020-05-23] MEDS: ACYCLOVIR 800 MG in SODIUM CHLORIDE 0.9% 250 ML IV SCH ×2 (12:27→20:44)
[2020-05-23 18:59] VITALS: BP 131/88
[2020-05-24 01:13] VITALS: BP 170/97
[2020-05-24] MEDS: hydrALAzine 20 MG/ML, 1ML IVPush PRN (01:20)
[2020-05-24] MEDS: PIPERACILLIN/TAZO/PMX 3.375GM 50 ML IV SCH ×4 (03:33→21:37)
[2020-05-24] MEDS: ACYCLOVIR 800 MG in SODIUM CHLORIDE 0.9% 250 ML IV SCH ×3 (04:36→20:18)
[2020-05-24 05:53] LABS: ANION GAP 9 mmol/L (5-15); CALCIUM 8.7 mg/dL (8.5-10.1); CHLORIDE 102 mmol/L (98-107); MEAN CORPUSCULAR HEMOGLOBIN 29.9 pg (27.5-34.5); MEAN CORPUSCULAR HGB CONC 34.5 g/dL (33.2-36.2); MEAN PLATELET VOLUME 8.8 fL (7.4-10.4); PLATELET COUNT 428 x10^3/uL (130-400); RED BLOOD COUNT 3.98 x10^6/uL (4.38-5.82)
[2020-05-24 05:54] LABS: CREATININE 0.53 mg/dL (0.7-1.3)
[2020-05-24 06:18] LABS: MD YES
[2020-05-24 06:20] LABS: LYMPH#(MANUAL) 2.52 x10^3/uL (1-3.4); LYMPHS% (MANUAL) 14 % (22-44); METAMYELOCYTES# (MANUAL) 0.18 x10^3/uL (0-0); METAMYELOCYTES% (MANUAL) 1 % (0-1); MONOS#(MANUAL) 2.34 x10^3/uL (0.3-2.7); MONOS% (MANUAL) 13 % (2-9); REACTIVE LYMPHS % (MANUAL) 5 % (0-0); SEG#(MANUAL) 12.06 x10^3/uL (1.8-6.8); SEGS% (MANUAL) 67 % (42-75)
[2020-05-24 06:22] LABS: <PLATELET ESTIMATE> ADEQUATE; <PLT MORPHOLOGY> NORMAL PLT MORPH; POLYCHROMASIA 1+; SMUDGE CELLS 1+
[2020-05-24 06:24] VITALS: BP 115/60
[2020-05-24] MEDS: SODIUM CHLORIDE FLUSH 10ML SYR IVF SCH ×2 (09:03→21:37)
[2020-05-24] MEDS: MULTIVITAMINS/MINERALS TABLET PO SCH (09:03)
[2020-05-24] MEDS: BICTEGRAV/EMTRICIT/TENOFOV ALA TAB PO SCH (09:03)
[2020-05-24] MEDS: POTASSIUM CHLORIDE 20 MEQ TAB.ER.PRT PO SCH ×2 (09:03→17:00)
[2020-05-24] MEDS: THIAMINE 100MG TABLET PO SCH (09:04)
[2020-05-24] MEDS: NS + 40MEQ KCL 1,000 ML IV SCH (12:01)
[2020-05-24 14:25] VITALS: BP 153/90
[2020-05-24 20:03] VITALS: BP 162/99
[2020-05-25] MEDS: NS + 40MEQ KCL 1,000 ML IV SCH ×2 (00:04→10:33)
[2020-05-25 01:45] VITALS: BP 151/84
[2020-05-25] MEDS: PIPERACILLIN/TAZO/PMX 3.375GM 50 ML IV SCH ×4 (03:21→23:06)
[2020-05-25] MEDS: ACYCLOVIR 800 MG in SODIUM CHLORIDE 0.9% 250 ML IV SCH (04:28)
[2020-05-25 04:41] LABS: HCT (SEDRATE) 36.3 % (39.2-51.8)
[2020-05-25 04:43] LABS: MEAN CORPUSCULAR HEMOGLOBIN 30.3 pg (27.5-34.5); MEAN CORPUSCULAR HGB CONC 34.7 g/dL (33.2-36.2); MEAN PLATELET VOLUME 8.8 fL (7.4-10.4); PLATELET COUNT 401 x10^3/uL (130-400); RED BLOOD COUNT 4.23 x10^6/uL (4.38-5.82); RED CELL DISTRIBUTION WIDTH 14.6 % (9.4-14.8)
[2020-05-25 04:53] LABS: ALBUMIN 2.7 g/dL (3.4-5.0); ANION GAP 10 mmol/L (5-15); CALCIUM 9.2 mg/dL (8.5-10.1); CHLORIDE 101 mmol/L (98-107)
[2020-05-25 05:03] LABS: ALANINE AMINOTRANSFERASE 81 U/L (12-78); ALKALINE PHOSPHATASE 151 U/L (45-117); BILIRUBIN,TOTAL 1.2 mg/dL (0.2-1.0); CREATININE 0.67 mg/dL (0.7-1.3); TOTAL PROTEIN 8.7 g/dL (6.4-8.2)
[2020-05-25 05:44] LABS: MD YES
[2020-05-25 05:46] LABS: BASOS#(MANUAL) 0.14 x10^3/uL (0-0.1); BASOS% (MANUAL) 1 % (0-1); LYMPH#(MANUAL) 0.95 x10^3/uL (1-3.4); LYMPHS% (MANUAL) 7 % (22-44); MONOS#(MANUAL) 2.16 x10^3/uL (0.3-2.7); MONOS% (MANUAL) 16 % (2-9); SEG#(MANUAL) 10.26 x10^3/uL (1.8-6.8); SEGS% (MANUAL) 76 % (42-75)
[2020-05-25 05:47] LABS: <PLATELET ESTIMATE> INCREASED; <PLT MORPHOLOGY> NORMAL PLT MORPH; POLYCHROMASIA 1+; SMUDGE CELLS 1+
[2020-05-25 06:52] VITALS: BP 151/73
[2020-05-25] MEDS ORDERED: SODIUM CHLORIDE 0.9%, 500ML IVBOLUS ONE (08:00)
[2020-05-25] MEDS: THIAMINE 100MG TABLET PO SCH (08:10)
[2020-05-25] MEDS: BICTEGRAV/EMTRICIT/TENOFOV ALA TAB PO SCH (08:10)
[2020-05-25] MEDS: MULTIVITAMINS/MINERALS TABLET PO SCH (08:11)
[2020-05-25] MEDS: POTASSIUM CHLORIDE 20 MEQ TAB.ER.PRT PO SCH ×2 (08:11→16:16)
[2020-05-25] MEDS: SODIUM CHLORIDE FLUSH 10ML SYR IVF SCH ×2 (09:00→20:46)
[2020-05-25 10:03] VITALS: BP 164/94
[2020-05-25 10:05] VITALS: BP 151/95
[2020-05-25 12:11] VITALS: BP 158/101
[2020-05-25] MEDS: FLUCONAZOLE IV SCH (12:24)
[2020-05-25] MEDS: hydrALAzine 20 MG/ML, 1ML IVPush PRN (12:24)
[2020-05-25 18:24] VITALS: BP 149/95
[2020-05-26 00:10] VITALS: BP 146/86
[2020-05-26] MEDS: NS + 40MEQ KCL 1,000 ML IV SCH ×2 (03:00→12:00)
[2020-05-26] MEDS: PIPERACILLIN/TAZO/PMX 3.375GM 50 ML IV SCH ×3 (05:41→17:19)
[2020-05-26 05:46] LABS: BASOPHILS % (AUTO) 1 % (0-1); EOSINOPHILS % (AUTO) 0 % (1-7); LYMPHOCYTES % (AUTO) 38 % (22-44); MEAN CORPUSCULAR HEMOGLOBIN 30.4 pg (27.5-34.5); MEAN CORPUSCULAR HGB CONC 34.7 g/dL (33.2-36.2); MEAN PLATELET VOLUME 9.1 fL (7.4-10.4); MONOCYTES % (AUTO) 11 % (2-9); NEUTROPHILS % (AUTO) 50 % (42-75); PLATELET COUNT 491 x10^3/uL (130-400); RED BLOOD COUNT 4.31 x10^6/uL (4.38-5.82); RED CELL DISTRIBUTION WIDTH 14.7 % (9.4-14.8)
[2020-05-26 05:53] LABS: ANION GAP 9 mmol/L (5-15); CALCIUM 8.8 mg/dL (8.5-10.1); CHLORIDE 102 mmol/L (98-107)
[2020-05-26 05:54] LABS: CREATININE 0.65 mg/dL (0.7-1.3)
[2020-05-26 06:12] LABS: MD SCAN
[2020-05-26 06:59] VITALS: BP 128/90
[2020-05-26] MEDS: POTASSIUM CHLORIDE 20 MEQ TAB.ER.PRT PO SCH ×2 (09:48→17:19)
[2020-05-26] MEDS: THIAMINE 100MG TABLET PO SCH (09:48)
[2020-05-26] MEDS: MULTIVITAMINS/MINERALS TABLET PO SCH (09:48)
[2020-05-26] MEDS: BICTEGRAV/EMTRICIT/TENOFOV ALA TAB PO SCH (09:48)
[2020-05-26] MEDS: FLUCONAZOLE IV SCH (09:48)
[2020-05-26] MEDS: SODIUM CHLORIDE FLUSH 10ML SYR IVF SCH ×2 (09:49→21:00)
[2020-05-26 12:18] VITALS: BP 137/86
[2020-05-26] MEDS: SULFAMETH./TRIMETHOPRIM DS 800MG/160MG TABLET PO SCH ×2 (18:40→21:05)
[2020-05-26 19:48] VITALS: BP 139/88
[2020-05-26] MEDS: LORazepam 1MG TABLET PO PRN (23:10)
[2020-05-27 00:30] VITALS: BP 132/79
[2020-05-27] MEDS: NS + 40MEQ KCL 1,000 ML IV SCH ×2 (03:34→13:30)
[2020-05-27 05:21] LABS: MEAN CORPUSCULAR HEMOGLOBIN 29.9 pg (27.5-34.5); MEAN CORPUSCULAR HGB CONC 34.3 g/dL (33.2-36.2); MEAN PLATELET VOLUME 8.9 fL (7.4-10.4); PLATELET COUNT 504 x10^3/uL (130-400); RED BLOOD COUNT 4.37 x10^6/uL (4.38-5.82); RED CELL DISTRIBUTION WIDTH 14.9 % (9.4-14.8)
[2020-05-27 05:36] LABS: ANION GAP 9 mmol/L (5-15); CALCIUM 9.4 mg/dL (8.5-10.1); CHLORIDE 102 mmol/L (98-107)
[2020-05-27 05:39] LABS: ALANINE AMINOTRANSFERASE 119 U/L (12-78); ALKALINE PHOSPHATASE 129 U/L (45-117); BILIRUBIN,TOTAL 0.8 mg/dL (0.2-1.0); CREATININE 0.76 mg/dL (0.7-1.3); TOTAL PROTEIN 9.1 g/dL (6.4-8.2)
[2020-05-27 06:18] LABS: MD YES
[2020-05-27 06:21] LABS: EOS#(MANUAL) 0.17 x10^3/uL (0.0-0.4); EOS% (MANUAL) 1 % (1-7); LYMPH#(MANUAL) 3.67 x10^3/uL (1-3.4); LYMPHS% (MANUAL) 22 % (22-44); MONOS#(MANUAL) 2.34 x10^3/uL (0.3-2.7); MONOS% (MANUAL) 14 % (2-9); MYELOCYTES# (MANUAL) 0.17 x10^3/uL (0-0); MYELOCYTES% (MANUAL) 1 % (0-0); POLYCHROMASIA 1+; REACTIVE LYMPHS # (MANUAL) 0.33 x10^3/uL (0-0); REACTIVE LYMPHS % (MANUAL) 2 % (0-0); SEG#(MANUAL) 10.02 x10^3/uL (1.8-6.8); SEGS% (MANUAL) 60 % (42-75)
[2020-05-27 06:22] LABS: <PLATELET ESTIMATE> INCREASED; <PLT MORPHOLOGY> NORMAL PLT MORPH; SMUDGE CELLS 1+
[2020-05-27 07:37] VITALS: BP 125/89
[2020-05-27] MEDS ORDERED: BICILLIN-LA 2,400,000 UNITS/4 ML IM ONE (08:00)
[2020-05-27] MEDS: MULTIVITAMINS/MINERALS TABLET PO SCH (10:07)
[2020-05-27] MEDS: ACETAMINOPHEN 325 MG TABLET PO PRN (10:07)
[2020-05-27] MEDS: BICTEGRAV/EMTRICIT/TENOFOV ALA TAB PO SCH (10:07)
[2020-05-27] MEDS: SULFAMETH./TRIMETHOPRIM DS 800MG/160MG TABLET PO SCH (10:07)
[2020-05-27] MEDS: POTASSIUM CHLORIDE 20 MEQ TAB.ER.PRT PO SCH ×2 (10:07→15:48)
[2020-05-27] MEDS: THIAMINE 100MG TABLET PO SCH (10:07)
[2020-05-27] MEDS: SODIUM CHLORIDE FLUSH 10ML SYR IVF SCH ×2 (10:08→21:42)
[2020-05-27] MEDS: PIPERACILLIN/TAZO/PMX 3.375GM 50 ML IV SCH ×3 (11:51→21:46)
[2020-05-27] MEDS: FLUCONAZOLE IV SCH (11:52)
[2020-05-27 12:34] VITALS: BP 120/76
[2020-05-27 19:54] VITALS: BP 126/83
[2020-05-27] MEDS: LORazepam 1MG TABLET PO PRN (21:28)
[2020-05-28] MEDS: NS + 40MEQ KCL 1,000 ML IV SCH ×2 (00:09→16:18)
[2020-05-28 01:36] VITALS: BP 120/68
[2020-05-28] MEDS: PIPERACILLIN/TAZO/PMX 3.375GM 50 ML IV SCH ×4 (02:12→23:10)
[2020-05-28 05:53] LABS: MEAN CORPUSCULAR HEMOGLOBIN 30.2 pg (27.5-34.5); MEAN CORPUSCULAR HGB CONC 34.9 g/dL (33.2-36.2); MEAN PLATELET VOLUME 8.1 fL (7.4-10.4); PLATELET COUNT 565 x10^3/uL (130-400); RED BLOOD COUNT 4.37 x10^6/uL (4.38-5.82); RED CELL DISTRIBUTION WIDTH 15.3 % (9.4-14.8)
[2020-05-28 06:09] LABS: ALBUMIN 2.9 g/dL (3.4-5.0); ANION GAP 9 mmol/L (5-15); CALCIUM 9.4 mg/dL (8.5-10.1); CHLORIDE 100 mmol/L (98-107)
[2020-05-28 06:13] LABS: ALANINE AMINOTRANSFERASE 92 U/L (12-78); ALKALINE PHOSPHATASE 115 U/L (45-117); BILIRUBIN,TOTAL 0.8 mg/dL (0.2-1.0); CREATININE 0.75 mg/dL (0.7-1.3); TOTAL PROTEIN 8.7 g/dL (6.4-8.2)
[2020-05-28 06:21] LABS: MD YES
[2020-05-28 06:23] LABS: BASOS#(MANUAL) 0.15 x10^3/uL (0-0.1); BASOS% (MANUAL) 1 % (0-1); EOS#(MANUAL) 0.15 x10^3/uL (0.0-0.4); EOS% (MANUAL) 1 % (1-7); LYMPH#(MANUAL) 1.45 x10^3/uL (1-3.4); LYMPHS% (MANUAL) 10 % (22-44); MONOS#(MANUAL) 1.74 x10^3/uL (0.3-2.7); MONOS% (MANUAL) 12 % (2-9); MYELOCYTES# (MANUAL) 0.15 x10^3/uL (0-0); MYELOCYTES% (MANUAL) 1 % (0-0); REACTIVE LYMPHS # (MANUAL) 1.16 x10^3/uL (0-0); REACTIVE LYMPHS % (MANUAL) 8 % (0-0); SEG#(MANUAL) 9.72 x10^3/uL (1.8-6.8); SEGS% (MANUAL) 67 % (42-75)
[2020-05-28 06:24] LABS: ANISOCYTOSIS 1+
[2020-05-28 06:25] LABS: <PLATELET ESTIMATE> INCREASED; <PLT MORPHOLOGY> NORMAL PLT MORPH; POLYCHROMASIA 1+
[2020-05-28 07:30] VITALS: BP 126/76
[2020-05-28] MEDS: SULFAMETH./TRIMETHOPRIM DS 800MG/160MG TABLET PO SCH (09:30)
[2020-05-28] MEDS: THIAMINE 100MG TABLET PO SCH (09:30)
[2020-05-28] MEDS: BICTEGRAV/EMTRICIT/TENOFOV ALA TAB PO SCH (09:30)
[2020-05-28] MEDS: POTASSIUM CHLORIDE 20 MEQ TAB.ER.PRT PO SCH ×2 (09:30→17:14)
[2020-05-28] MEDS: MULTIVITAMINS/MINERALS TABLET PO SCH (09:30)
[2020-05-28] MEDS: SODIUM CHLORIDE 1 GM TABLET PO SCH ×2 (10:49→20:51)
[2020-05-28] MEDS: SODIUM CHLORIDE FLUSH 10ML SYR IVF SCH ×2 (11:37→20:51)
[2020-05-28 12:07] VITALS: BP 159/98
[2020-05-28] MEDS: FLUCONAZOLE IV SCH (12:23)
[2020-05-28] MEDS ORDERED: BICILLIN-LA 2,400,000 UNITS/4 ML IM ONE (13:00)
[2020-05-28 20:06] VITALS: BP 155/92
[2020-05-29 01:06] VITALS: BP 119/81
[2020-05-29] MEDS: NS + 40MEQ KCL 1,000 ML IV SCH ×2 (03:14→17:46)
[2020-05-29] MEDS: PIPERACILLIN/TAZO/PMX 3.375GM 50 ML IV SCH ×4 (05:11→23:34)
[2020-05-29 05:12] LABS: MEAN CORPUSCULAR HEMOGLOBIN 30.7 pg (27.5-34.5); MEAN CORPUSCULAR HGB CONC 35.2 g/dL (33.2-36.2); MEAN PLATELET VOLUME 8.4 fL (7.4-10.4); PLATELET COUNT 605 x10^3/uL (130-400); RED BLOOD COUNT 4.62 x10^6/uL (4.38-5.82); RED CELL DISTRIBUTION WIDTH 14.9 % (9.4-14.8)
[2020-05-29 05:17] LABS: ANION GAP 7 mmol/L (5-15); CALCIUM 9.5 mg/dL (8.5-10.1); CHLORIDE 101 mmol/L (98-107)
[2020-05-29 05:20] LABS: CREATININE 0.79 mg/dL (0.7-1.3)
[2020-05-29 05:31] VITALS: BP 173/84
[2020-05-29 06:02] LABS: MD YES
[2020-05-29 06:03] LABS: BAND#(MANUAL) 0.11 x10^3/uL; BANDS%(MANUAL) 1 % (0-7); EOS#(MANUAL) 0.11 x10^3/uL (0.0-0.4); EOS% (MANUAL) 1 % (1-7); LYMPH#(MANUAL) 2.46 x10^3/uL (1-3.4); LYMPHS% (MANUAL) 23 % (22-44); METAMYELOCYTES# (MANUAL) 0.21 x10^3/uL (0-0); METAMYELOCYTES% (MANUAL) 2 % (0-1); MONOS#(MANUAL) 0.96 x10^3/uL (0.3-2.7); MONOS% (MANUAL) 9 % (2-9); REACTIVE LYMPHS # (MANUAL) 0.21 x10^3/uL (0-0); REACTIVE LYMPHS % (MANUAL) 2 % (0-0); SEG#(MANUAL) 6.63 x10^3/uL (1.8-6.8); SEGS% (MANUAL) 62 % (42-75)
[2020-05-29 06:04] LABS: <PLATELET ESTIMATE> INCREASED; <PLT MORPHOLOGY> NORMAL PLT MORPH; ANISOCYTOSIS 1+; POLYCHROMASIA 1+
[2020-05-29 07:32] VITALS: BP 160/108
[2020-05-29] MEDS: POTASSIUM CHLORIDE 20 MEQ TAB.ER.PRT PO SCH ×2 (09:20→16:21)
[2020-05-29] MEDS: BICTEGRAV/EMTRICIT/TENOFOV ALA TAB PO SCH (09:20)
[2020-05-29] MEDS: SODIUM CHLORIDE 1 GM TABLET PO SCH ×3 (09:20→21:02)
[2020-05-29] MEDS: SULFAMETH./TRIMETHOPRIM DS 800MG/160MG TABLET PO SCH (09:20)
[2020-05-29] MEDS: SODIUM CHLORIDE FLUSH 10ML SYR IVF SCH ×2 (09:21→21:01)
[2020-05-29] MEDS: LORazepam 1MG TABLET PO PRN (09:21)
[2020-05-29] MEDS: MULTIVITAMINS/MINERALS TABLET PO SCH (09:21)
[2020-05-29] MEDS: THIAMINE 100MG TABLET PO SCH (09:21)
[2020-05-29 12:08] VITALS: BP 133/90
[2020-05-29] MEDS: FLUCONAZOLE IV SCH (12:47)
[2020-05-29 19:58] VITALS: BP 139/96
[2020-05-29 20:57] VITALS: BP 227/77
[2020-05-30 01:12] VITALS: BP 140/83
[2020-05-30 05:02] LABS: BASOPHILS % (AUTO) 1 % (0-1); EOSINOPHILS % (AUTO) 1 % (1-7); LYMPHOCYTES % (AUTO) 33 % (22-44); MEAN CORPUSCULAR HEMOGLOBIN 30.8 pg (27.5-34.5); MEAN CORPUSCULAR HGB CONC 35.2 g/dL (33.2-36.2); MEAN PLATELET VOLUME 8.5 fL (7.4-10.4); MONOCYTES % (AUTO) 14 % (2-9); NEUTROPHILS % (AUTO) 52 % (42-75); PLATELET COUNT 586 x10^3/uL (130-400); RED BLOOD COUNT 4.33 x10^6/uL (4.38-5.82); RED CELL DISTRIBUTION WIDTH 14.9 % (9.4-14.8)
[2020-05-30 05:08] LABS: MD NO
[2020-05-30 05:16] LABS: ANION GAP 7 mmol/L (5-15); CALCIUM 9.5 mg/dL (8.5-10.1); CHLORIDE 102 mmol/L (98-107)
[2020-05-30 05:18] LABS: CREATININE 0.74 mg/dL (0.7-1.3)
[2020-05-30] MEDS: PIPERACILLIN/TAZO/PMX 3.375GM 50 ML IV SCH ×3 (05:31→17:42)
[2020-05-30 06:41] VITALS: BP 128/80
[2020-05-30] MEDS: NS + 40MEQ KCL 1,000 ML IV SCH (07:18)
[2020-05-30] MEDS: SODIUM CHLORIDE 1 GM TABLET PO SCH ×3 (09:00→21:43)
[2020-05-30] MEDS: SULFAMETH./TRIMETHOPRIM DS 800MG/160MG TABLET PO SCH (09:59)
[2020-05-30] MEDS: MULTIVITAMINS/MINERALS TABLET PO SCH (09:59)
[2020-05-30] MEDS: POTASSIUM CHLORIDE 20 MEQ TAB.ER.PRT PO SCH ×2 (09:59→16:26)
[2020-05-30] MEDS: SODIUM CHLORIDE FLUSH 10ML SYR IVF SCH ×2 (09:59→21:44)
[2020-05-30] MEDS: BICTEGRAV/EMTRICIT/TENOFOV ALA TAB PO SCH (10:02)
[2020-05-30] MEDS: THIAMINE 100MG TABLET PO SCH (10:02)
[2020-05-30 12:51] VITALS: BP 122/81
[2020-05-30] MEDS: FLUCONAZOLE IV SCH (13:14)
[2020-05-30 18:48] VITALS: BP 120/84
[2020-05-31] MEDS: PIPERACILLIN/TAZO/PMX 3.375GM 50 ML IV SCH ×4 (00:17→18:54)
[2020-05-31] MEDS: NS + 40MEQ KCL 1,000 ML IV SCH (00:19)
[2020-05-31 00:43] VITALS: BP 125/79
[2020-05-31 04:54] LABS: BASOPHILS % (AUTO) 1 % (0-1); EOSINOPHILS % (AUTO) 2 % (1-7); LYMPHOCYTES % (AUTO) 28 % (22-44); MEAN CORPUSCULAR HEMOGLOBIN 30.7 pg (27.5-34.5); MEAN CORPUSCULAR HGB CONC 34.8 g/dL (33.2-36.2); MEAN PLATELET VOLUME 8.3 fL (7.4-10.4); MONOCYTES % (AUTO) 11 % (2-9); NEUTROPHILS % (AUTO) 58 % (42-75); PLATELET COUNT 519 x10^3/uL (130-400); RED BLOOD COUNT 4.41 x10^6/uL (4.38-5.82); RED CELL DISTRIBUTION WIDTH 15.3 % (9.4-14.8)
[2020-05-31 04:56] LABS: MD NO
[2020-05-31 05:06] LABS: ANION GAP 8 mmol/L (5-15); CALCIUM 9.1 mg/dL (8.5-10.1); CHLORIDE 102 mmol/L (98-107)
[2020-05-31 05:09] LABS: CREATININE 0.72 mg/dL (0.7-1.3)
[2020-05-31 06:55] VITALS: BP 145/96
[2020-05-31] MEDS: BICTEGRAV/EMTRICIT/TENOFOV ALA TAB PO SCH (09:16)
[2020-05-31] MEDS: SODIUM CHLORIDE 1 GM TABLET PO SCH ×2 (09:17→20:30)
[2020-05-31] MEDS: SULFAMETH./TRIMETHOPRIM DS 800MG/160MG TABLET PO SCH (09:17)
[2020-05-31] MEDS: THIAMINE 100MG TABLET PO SCH (09:17)
[2020-05-31] MEDS: MULTIVITAMINS/MINERALS TABLET PO SCH (09:17)
[2020-05-31] MEDS: SODIUM CHLORIDE FLUSH 10ML SYR IVF SCH ×2 (09:17→20:30)
[2020-05-31] MEDS: POTASSIUM CHLORIDE 20 MEQ TAB.ER.PRT PO SCH ×2 (09:17→17:18)
[2020-05-31 12:26] VITALS: BP 131/90
[2020-05-31] MEDS: FLUCONAZOLE IV SCH (13:49)
[2020-05-31 20:20] VITALS: BP 141/81
[2020-06-01] MEDS: PIPERACILLIN/TAZO/PMX 3.375GM 50 ML IV SCH ×2 (00:13→05:47)
[2020-06-01 00:21] VITALS: BP 137/90
[2020-06-01 05:42] LABS: BASOPHILS % (AUTO) 1 % (0-1); EOSINOPHILS % (AUTO) 1 % (1-7); LYMPHOCYTES % (AUTO) 26 % (22-44); MEAN CORPUSCULAR HEMOGLOBIN 30.7 pg (27.5-34.5); MEAN CORPUSCULAR HGB CONC 35.2 g/dL (33.2-36.2); MEAN PLATELET VOLUME 8.6 fL (7.4-10.4); MONOCYTES % (AUTO) 10 % (2-9); NEUTROPHILS % (AUTO) 63 % (42-75); PLATELET COUNT 567 x10^3/uL (130-400); RED CELL DISTRIBUTION WIDTH 15.7 % (9.4-14.8)
[2020-06-01 05:43] LABS: MD NO
[2020-06-01 07:18] VITALS: BP 121/85
[2020-06-01] MEDS: SODIUM CHLORIDE FLUSH 10ML SYR IVF SCH ×2 (09:36→19:56)
[2020-06-01] MEDS: BICTEGRAV/EMTRICIT/TENOFOV ALA TAB PO SCH (09:36)
[2020-06-01] MEDS: THIAMINE 100MG TABLET PO SCH (09:37)
[2020-06-01] MEDS: SODIUM CHLORIDE 1 GM TABLET PO SCH ×2 (09:37→19:56)
[2020-06-01] MEDS: SULFAMETH./TRIMETHOPRIM DS 800MG/160MG TABLET PO SCH (09:37)
[2020-06-01] MEDS: MULTIVITAMINS/MINERALS TABLET PO SCH (09:38)
[2020-06-01] MEDS: POTASSIUM CHLORIDE 20 MEQ TAB.ER.PRT PO SCH ×2 (09:38→16:39)
[2020-06-01] MEDS ORDERED: ROPivacaine/PF 0.2%, 10 ML ONE (10:44)
[2020-06-01] MEDS ORDERED: LIDOCAINE-MPF 1%, 5ML ONE (10:44)
[2020-06-01 12:14] LABS: GLUCOSE, CSF 68 mg/dL (40-80); TOTAL PROTEIN,CSF 141 mg/dL (15-45)
[2020-06-01 12:39] VITALS: BP 138/90
[2020-06-01] MEDS: FLUCONAZOLE IV SCH (13:11)
[2020-06-01 20:09] VITALS: BP 136/91
[2020-06-02 00:11] VITALS: BP 140/84
[2020-06-02] MEDS: HYDROcodone/APAP 5/325 TABLET PO PRN (00:58)
[2020-06-02] MEDS: LORazepam 1MG TABLET PO PRN ×2 (04:32→20:01)
[2020-06-02 05:45] LABS: BASOPHILS % (AUTO) 1 % (0-1); EOSINOPHILS % (AUTO) 1 % (1-7); LYMPHOCYTES % (AUTO) 19 % (22-44); MD NO; MEAN CORPUSCULAR HEMOGLOBIN 30.3 pg (27.5-34.5); MEAN CORPUSCULAR HGB CONC 34.4 g/dL (33.2-36.2); MEAN PLATELET VOLUME 8.4 fL (7.4-10.4); MONOCYTES % (AUTO) 11 % (2-9); NEUTROPHILS % (AUTO) 69 % (42-75); PLATELET COUNT 527 x10^3/uL (130-400); RED BLOOD COUNT 4.29 x10^6/uL (4.38-5.82); RED CELL DISTRIBUTION WIDTH 15.7 % (9.4-14.8)
[2020-06-02 05:59] LABS: CHLORIDE 101 mmol/L (98-107)
[2020-06-02 06:06] LABS: ANION GAP 9 mmol/L (5-15); CALCIUM 9.4 mg/dL (8.5-10.1); CREATININE 0.81 mg/dL (0.7-1.3)
[2020-06-02] MEDS: BICTEGRAV/EMTRICIT/TENOFOV ALA TAB PO SCH (08:48)
[2020-06-02] MEDS: THIAMINE 100MG TABLET PO SCH (08:48)
[2020-06-02] MEDS: POTASSIUM CHLORIDE 20 MEQ TAB.ER.PRT PO SCH ×2 (08:48→18:13)
[2020-06-02] MEDS: MULTIVITAMINS/MINERALS TABLET PO SCH (08:48)
[2020-06-02] MEDS: SODIUM CHLORIDE 1 GM TABLET PO SCH ×2 (08:48→20:01)
[2020-06-02] MEDS: SULFAMETH./TRIMETHOPRIM DS 800MG/160MG TABLET PO SCH (08:48)
[2020-06-02] MEDS: SODIUM CHLORIDE FLUSH 10ML SYR IVF SCH ×2 (08:49→20:01)
[2020-06-02 09:49] VITALS: BP 130/89
[2020-06-02] MEDS: FLUCONAZOLE IV SCH (13:01)
[2020-06-02 14:50] VITALS: BP 133/89
[2020-06-02 19:25] VITALS: BP 130/88
[2020-06-03 01:38] VITALS: BP 140/76
[2020-06-03 05:46] LABS: ANION GAP 5 mmol/L (5-15); CALCIUM 10.1 mg/dL (8.5-10.1); CHLORIDE 101 mmol/L (98-107); CREATININE 0.77 mg/dL (0.7-1.3)
[2020-06-03 07:14] LABS: BASOPHILS % (AUTO) 1 % (0-1); EOSINOPHILS % (AUTO) 1 % (1-7); LYMPHOCYTES % (AUTO) 22 % (22-44); MEAN CORPUSCULAR HGB CONC 34.9 g/dL (33.2-36.2); MEAN PLATELET VOLUME 8.2 fL (7.4-10.4); MONOCYTES % (AUTO) 9 % (2-9); NEUTROPHILS % (AUTO) 67 % (42-75); PLATELET COUNT 504 x10^3/uL (130-400); RED BLOOD COUNT 4.25 x10^6/uL (4.38-5.82); RED CELL DISTRIBUTION WIDTH 16.3 % (9.4-14.8)
[2020-06-03 07:16] LABS: MD NO
[2020-06-03 07:25] VITALS: BP 134/89
[2020-06-03] MEDS ORDERED: BICILLIN-LA 2,400,000 UNITS/4 ML IM ONE (08:30)
[2020-06-03] MEDS: SODIUM CHLORIDE FLUSH 10ML SYR IVF SCH ×2 (09:00→20:27)
[2020-06-03] MEDS: SODIUM CHLORIDE 1 GM TABLET PO SCH ×2 (09:13→20:27)
[2020-06-03] MEDS: SULFAMETH./TRIMETHOPRIM DS 800MG/160MG TABLET PO SCH (09:13)
[2020-06-03] MEDS: POTASSIUM CHLORIDE 20 MEQ TAB.ER.PRT PO SCH ×2 (09:13→15:51)
[2020-06-03] MEDS: MULTIVITAMINS/MINERALS TABLET PO SCH (09:13)
[2020-06-03] MEDS: THIAMINE 100MG TABLET PO SCH (09:13)
[2020-06-03] MEDS: BICTEGRAV/EMTRICIT/TENOFOV ALA TAB PO SCH (09:13)
[2020-06-03 12:11] VITALS: BP 128/91
[2020-06-03] MEDS: FLUCONAZOLE IV SCH (13:01)
[2020-06-03 19:09] VITALS: BP 125/71
[2020-06-03] MEDS: LORazepam 1MG TABLET PO PRN (20:27)
[2020-06-04 00:51] VITALS: BP 120/76
[2020-06-04 06:13] LABS: CALCIUM 9.5 mg/dL (8.5-10.1); CHLORIDE 101 mmol/L (98-107)
[2020-06-04 06:17] LABS: ANION GAP 9 mmol/L (5-15); CREATININE 0.77 mg/dL (0.7-1.3)
[2020-06-04 07:36] VITALS: BP 130/79
[2020-06-04] MEDS ORDERED: FLUCONAZOLE 40 MG/ML ORAL SUSP PO SCH (09:00)
[2020-06-04] MEDS: MULTIVITAMINS/MINERALS TABLET PO SCH (09:11)
[2020-06-04] MEDS: FLUCONAZOLE 200 MG TABLET PO SCH (09:11)
[2020-06-04] MEDS: POTASSIUM CHLORIDE 20 MEQ TAB.ER.PRT PO SCH ×2 (09:12→16:15)
[2020-06-04] MEDS: SODIUM CHLORIDE FLUSH 10ML SYR IVF SCH ×2 (09:12→20:10)
[2020-06-04] MEDS: SODIUM CHLORIDE 1 GM TABLET PO SCH ×2 (09:12→20:10)
[2020-06-04] MEDS: SULFAMETH./TRIMETHOPRIM DS 800MG/160MG TABLET PO SCH (09:12)
[2020-06-04] MEDS: BICTEGRAV/EMTRICIT/TENOFOV ALA TAB PO SCH (09:12)
[2020-06-04] MEDS: THIAMINE 100MG TABLET PO SCH (09:12)
[2020-06-04 12:37] VITALS: BP 126/85
[2020-06-04] MEDS ORDERED: FLUC200T PO (14:18)
[2020-06-04] MEDS ORDERED: BICT1TAB PO (14:18)
[2020-06-04] MEDS ORDERED: Sulfameth./Trimethoprim Ds PO (14:18)
[2020-06-04] MEDS: LORazepam 1MG TABLET PO PRN ×2 (16:49→22:02)
[2020-06-04 19:12] VITALS: BP 122/80
[2020-06-05 00:34] VITALS: BP 132/79
[2020-06-05 05:08] LABS: ALBUMIN 3.3 g/dL (3.4-5.0); ANION GAP 7 mmol/L (5-15); CALCIUM 9.8 mg/dL (8.5-10.1); CHLORIDE 100 mmol/L (98-107)
[2020-06-05 05:11] LABS: CREATININE 0.76 mg/dL (0.7-1.3)
[2020-06-05 05:12] LABS: ALANINE AMINOTRANSFERASE 66 U/L (12-78); ALKALINE PHOSPHATASE 103 U/L (45-117); BILIRUBIN,TOTAL 0.5 mg/dL (0.2-1.0); TOTAL PROTEIN 8.3 g/dL (6.4-8.2)
[2020-06-05 06:41] VITALS: BP 118/79
[2020-06-05] MEDS: BICTEGRAV/EMTRICIT/TENOFOV ALA TAB PO SCH (08:36)
[2020-06-05] MEDS: SODIUM CHLORIDE FLUSH 10ML SYR IVF SCH ×2 (08:37→20:20)
[2020-06-05] MEDS: FLUCONAZOLE 200 MG TABLET PO SCH (08:37)
[2020-06-05] MEDS: POTASSIUM CHLORIDE 20 MEQ TAB.ER.PRT PO SCH ×2 (08:37→17:13)
[2020-06-05] MEDS: MULTIVITAMINS/MINERALS TABLET PO SCH (08:37)
[2020-06-05] MEDS: THIAMINE 100MG TABLET PO SCH (08:37)
[2020-06-05] MEDS: SULFAMETH./TRIMETHOPRIM DS 800MG/160MG TABLET PO SCH (08:37)
[2020-06-05] MEDS: SODIUM CHLORIDE 1 GM TABLET PO SCH ×2 (08:51→21:25)
[2020-06-05] MEDS: LORazepam 1MG TABLET PO PRN ×2 (08:51→21:25)
[2020-06-05 15:15] VITALS: BP 145/95
[2020-06-05 18:57] VITALS: BP 144/87
[2020-06-06 00:56] VITALS: BP 154/98
[2020-06-06] MEDS: LORazepam 1MG TABLET PO PRN ×2 (00:57→20:41)
[2020-06-06 05:16] LABS: BASOPHILS % (AUTO) 1 % (0-1); EOSINOPHILS % (AUTO) 2 % (1-7); LYMPHOCYTES % (AUTO) 16 % (22-44); MEAN CORPUSCULAR HEMOGLOBIN 31.2 pg (27.5-34.5); MEAN PLATELET VOLUME 8.6 fL (7.4-10.4); MONOCYTES % (AUTO) 11 % (2-9); NEUTROPHILS % (AUTO) 71 % (42-75); PLATELET COUNT 392 x10^3/uL (130-400); RED BLOOD COUNT 4.29 x10^6/uL (4.38-5.82)
[2020-06-06 05:18] LABS: HCT (SEDRATE) 37.6 % (39.2-51.8)
[2020-06-06 05:20] LABS: MD NO
[2020-06-06 05:27] LABS: ALANINE AMINOTRANSFERASE 60 U/L (12-78); ALBUMIN 3.5 g/dL (3.4-5.0); ANION GAP 6 mmol/L (5-15); C-REACTIVE PROTEIN, QUANT 0.85 mg/dL (0.02-0.49); CALCIUM 10.7 mg/dL (8.5-10.1); CHLORIDE 98 mmol/L (98-107)
[2020-06-06 05:30] LABS: ALKALINE PHOSPHATASE 108 U/L (45-117); BILIRUBIN,TOTAL 0.6 mg/dL (0.2-1.0); CREATININE 0.89 mg/dL (0.7-1.3); TOTAL PROTEIN 8.9 g/dL (6.4-8.2)
[2020-06-06 07:24] VITALS: BP 128/88
[2020-06-06] MEDS: THIAMINE 100MG TABLET PO SCH (08:54)
[2020-06-06] MEDS: POTASSIUM CHLORIDE 20 MEQ TAB.ER.PRT PO SCH ×2 (08:54→17:21)
[2020-06-06] MEDS: MULTIVITAMINS/MINERALS TABLET PO SCH (08:54)
[2020-06-06] MEDS: SULFAMETH./TRIMETHOPRIM DS 800MG/160MG TABLET PO SCH (08:54)
[2020-06-06] MEDS: BICTEGRAV/EMTRICIT/TENOFOV ALA TAB PO SCH (08:55)
[2020-06-06] MEDS: FLUCONAZOLE 200 MG TABLET PO SCH (08:55)
[2020-06-06] MEDS: SODIUM CHLORIDE FLUSH 10ML SYR IVF SCH ×2 (08:55→21:00)
[2020-06-06 12:02] VITALS: BP 124/86
[2020-06-06 20:43] VITALS: BP 124/82
[2020-06-07 02:08] VITALS: BP 127/92
[2020-06-07 07:33] VITALS: BP 135/93
[2020-06-07] MEDS: THIAMINE 100MG TABLET PO SCH (08:14)
[2020-06-07] MEDS: MULTIVITAMINS/MINERALS TABLET PO SCH (08:14)
[2020-06-07] MEDS: POTASSIUM CHLORIDE 20 MEQ TAB.ER.PRT PO SCH ×2 (08:14→17:50)
[2020-06-07] MEDS: BICTEGRAV/EMTRICIT/TENOFOV ALA TAB PO SCH (08:14)
[2020-06-07] MEDS: SODIUM CHLORIDE FLUSH 10ML SYR IVF SCH ×2 (08:14→21:00)
[2020-06-07] MEDS: SULFAMETH./TRIMETHOPRIM DS 800MG/160MG TABLET PO SCH (08:14)
[2020-06-07] MEDS: FLUCONAZOLE 200 MG TABLET PO SCH (08:17)
[2020-06-07 14:31] VITALS: BP 119/87
[2020-06-07 20:15] VITALS: BP 140/80
[2020-06-07] MEDS: LORazepam 1MG TABLET PO PRN (21:21)
[2020-06-08 00:55] VITALS: BP 125/89
[2020-06-08 02:36] VITALS: BP 132/87
[2020-06-08 05:07] LABS: ALBUMIN 3.4 g/dL (3.4-5.0); ANION GAP 10 mmol/L (5-15); C-REACTIVE PROTEIN, QUANT 0.79 mg/dL (0.02-0.49); CHLORIDE 96 mmol/L (98-107)
[2020-06-08 05:10] LABS: ALANINE AMINOTRANSFERASE 55 U/L (12-78); ALKALINE PHOSPHATASE 105 U/L (45-117); BILIRUBIN,TOTAL 0.6 mg/dL (0.2-1.0); CREATININE 0.77 mg/dL (0.7-1.3); TOTAL PROTEIN 8.8 g/dL (6.4-8.2)
[2020-06-08] MEDS: LORazepam 1MG TABLET PO PRN ×3 (05:12→18:33)
[2020-06-08 05:13] LABS: HCT (SEDRATE) 38.2 % (39.2-51.8)
[2020-06-08 05:19] LABS: BASOPHILS % (AUTO) 1 % (0-1); EOSINOPHILS % (AUTO) 2 % (1-7); LYMPHOCYTES % (AUTO) 18 % (22-44); MEAN PLATELET VOLUME 8.9 fL (7.4-10.4); MONOCYTES % (AUTO) 12 % (2-9); NEUTROPHILS % (AUTO) 68 % (42-75); PLATELET COUNT 281 x10^3/uL (130-400); RED BLOOD COUNT 4.34 x10^6/uL (4.38-5.82); RED CELL DISTRIBUTION WIDTH 17.4 % (9.4-14.8)
[2020-06-08 05:21] LABS: MD NO
[2020-06-08 06:18] VITALS: BP 136/92
[2020-06-08] MEDS: POTASSIUM CHLORIDE 20 MEQ TAB.ER.PRT PO SCH ×2 (08:40→17:29)
[2020-06-08] MEDS: FLUCONAZOLE 200 MG TABLET PO SCH (08:40)
[2020-06-08] MEDS: THIAMINE 100MG TABLET PO SCH (08:40)
[2020-06-08] MEDS: MULTIVITAMINS/MINERALS TABLET PO SCH (08:40)
[2020-06-08] MEDS: SULFAMETH./TRIMETHOPRIM DS 800MG/160MG TABLET PO SCH (08:41)
[2020-06-08] MEDS: SODIUM CHLORIDE FLUSH 10ML SYR IVF SCH ×2 (08:41→21:00)
[2020-06-08] MEDS: BICTEGRAV/EMTRICIT/TENOFOV ALA TAB PO SCH (08:45)
[2020-06-08 14:08] VITALS: BP 129/88
[2020-06-08] MEDS ORDERED: SODIUM CHLORIDE 0.9%, 500ML IVBOLUS ONE (14:30)
[2020-06-08 16:46] LABS: MICROSCOPIC AUTO
[2020-06-08 18:23] VITALS: BP 111/78
[2020-06-08] MEDS: HYDROcodone/APAP 5/325 TABLET PO PRN (20:11)
[2020-06-09 00:23] VITALS: BP 119/81
[2020-06-09 05:13] LABS: BASOPHILS % (AUTO) 1 % (0-1); EOSINOPHILS % (AUTO) 2 % (1-7); LYMPHOCYTES % (AUTO) 18 % (22-44); MEAN PLATELET VOLUME 9.1 fL (7.4-10.4); MONOCYTES % (AUTO) 11 % (2-9); NEUTROPHILS % (AUTO) 68 % (42-75); PLATELET COUNT 264 x10^3/uL (130-400); RED BLOOD COUNT 4.11 x10^6/uL (4.38-5.82); RED CELL DISTRIBUTION WIDTH 17.8 % (9.4-14.8)
[2020-06-09 05:16] LABS: MD NO
[2020-06-09 05:29] LABS: ANION GAP 7 mmol/L (5-15); CALCIUM 9.9 mg/dL (8.5-10.1); CHLORIDE 97 mmol/L (98-107)
[2020-06-09 05:31] LABS: CREATININE 0.84 mg/dL (0.7-1.3)
[2020-06-09 06:37] VITALS: BP 159/93
[2020-06-09] MEDS: POTASSIUM CHLORIDE 20 MEQ TAB.ER.PRT PO SCH ×2 (07:53→17:10)
[2020-06-09] MEDS: SODIUM CHLORIDE FLUSH 10ML SYR IVF SCH ×2 (08:49→21:00)
[2020-06-09] MEDS: BICTEGRAV/EMTRICIT/TENOFOV ALA TAB PO SCH (08:49)
[2020-06-09] MEDS: FLUCONAZOLE 200 MG TABLET PO SCH (08:49)
[2020-06-09] MEDS: MULTIVITAMINS/MINERALS TABLET PO SCH (08:50)
[2020-06-09] MEDS: THIAMINE 100MG TABLET PO SCH (08:50)
[2020-06-09] MEDS: SULFAMETH./TRIMETHOPRIM DS 800MG/160MG TABLET PO SCH (08:50)
[2020-06-09 12:22] VITALS: BP 136/90
[2020-06-09] MEDS ORDERED: SODIUM CHLORIDE 0.9% 1,000ML IVBOLUS ONE (15:00)
[2020-06-09 18:50] VITALS: BP 123/95
[2020-06-09] MEDS: LORazepam 1MG TABLET PO PRN (20:10)
[2020-06-10 00:28] VITALS: BP 113/77
[2020-06-10 05:56] LABS: ANION GAP 6 mmol/L (5-15); CHLORIDE 97 mmol/L (98-107)
[2020-06-10 05:57] LABS: CREATININE 0.87 mg/dL (0.7-1.3)
[2020-06-10 06:39] VITALS: BP 133/82
[2020-06-10] MEDS: SULFAMETH./TRIMETHOPRIM DS 800MG/160MG TABLET PO SCH (07:40)
[2020-06-10] MEDS: POTASSIUM CHLORIDE 20 MEQ TAB.ER.PRT PO SCH ×2 (07:40→17:32)
[2020-06-10] MEDS: MULTIVITAMINS/MINERALS TABLET PO SCH (07:41)
[2020-06-10] MEDS: BICTEGRAV/EMTRICIT/TENOFOV ALA TAB PO SCH (07:41)
[2020-06-10] MEDS: FLUCONAZOLE 200 MG TABLET PO SCH (07:41)
[2020-06-10] MEDS: THIAMINE 100MG TABLET PO SCH (07:41)
[2020-06-10] MEDS: SODIUM CHLORIDE FLUSH 10ML SYR IVF SCH ×2 (07:42→21:10)
[2020-06-10] MEDS ORDERED: BICILLIN-LA 2,400,000 UNITS/4 ML IM ONE (08:30)
[2020-06-10] MEDS: SODIUM CHLORIDE 0.9% 1,000 ML IV SCH ×2 (10:02→14:05)
[2020-06-10 12:45] VITALS: BP 125/77
[2020-06-10] MEDS: HYDROcodone/APAP 5/325 TABLET PO PRN (14:31)
[2020-06-10 18:51] VITALS: BP 141/92
[2020-06-11 00:17] VITALS: BP 144/89
[2020-06-11] MEDS: ONDANSETRON ODT 4 MG PO PRN ×2 (01:01→15:54)
[2020-06-11 05:26] LABS: CALCIUM 9.7 mg/dL (8.5-10.1); CHLORIDE 96 mmol/L (98-107)
[2020-06-11 05:30] LABS: CREATININE 0.83 mg/dL (0.7-1.3)
[2020-06-11 05:44] LABS: ANION GAP 6 mmol/L (5-15)
[2020-06-11 07:50] VITALS: BP 136/89
[2020-06-11] MEDS: POTASSIUM CHLORIDE 20 MEQ TAB.ER.PRT PO SCH ×2 (08:13→17:34)
[2020-06-11] MEDS: THIAMINE 100MG TABLET PO SCH (08:13)
[2020-06-11] MEDS: SULFAMETH./TRIMETHOPRIM DS 800MG/160MG TABLET PO SCH (08:14)
[2020-06-11] MEDS: FLUCONAZOLE 200 MG TABLET PO SCH (08:14)
[2020-06-11] MEDS: MULTIVITAMINS/MINERALS TABLET PO SCH (08:14)
[2020-06-11] MEDS: BICTEGRAV/EMTRICIT/TENOFOV ALA TAB PO SCH (09:42)
[2020-06-11] MEDS: SODIUM CHLORIDE FLUSH 10ML SYR IVF SCH ×2 (09:43→22:05)
[2020-06-11 13:13] VITALS: BP 112/77
[2020-06-11] MEDS: SODIUM CHLORIDE 1 GM TABLET PO SCH ×2 (13:50→21:49)
[2020-06-11] MEDS: LORazepam 1MG TABLET PO PRN (17:34)
[2020-06-11 18:17] VITALS: BP 136/89
[2020-06-12 00:18] VITALS: BP 130/90
[2020-06-12] MEDS: ACETAMINOPHEN 325 MG TABLET PO PRN (03:07)
[2020-06-12] MEDS: LORazepam 1MG TABLET PO PRN (03:10)
[2020-06-12 05:17] LABS: BASOPHILS % (AUTO) 1 % (0-1); EOSINOPHILS % (AUTO) 2 % (1-7); LYMPHOCYTES % (AUTO) 17 % (22-44); MEAN CORPUSCULAR HEMOGLOBIN 30.8 pg (27.5-34.5); MEAN CORPUSCULAR HGB CONC 34.7 g/dL (33.2-36.2); MEAN PLATELET VOLUME 8.9 fL (7.4-10.4); MONOCYTES % (AUTO) 12 % (2-9); NEUTROPHILS % (AUTO) 68 % (42-75); PLATELET COUNT 230 x10^3/uL (130-400); RED BLOOD COUNT 4.09 x10^6/uL (4.38-5.82); RED CELL DISTRIBUTION WIDTH 17.4 % (9.4-14.8)
[2020-06-12 05:25] LABS: MD NO
[2020-06-12 05:30] LABS: CHLORIDE 96 mmol/L (98-107)
[2020-06-12 05:35] LABS: ALBUMIN 3.5 g/dL (3.4-5.0); ANION GAP 9 mmol/L (5-15); CALCIUM 10.3 mg/dL (8.5-10.1); CREATININE 0.96 mg/dL (0.7-1.3)
[2020-06-12 07:31] VITALS: BP 128/88
[2020-06-12] MEDS: FLUCONAZOLE 200 MG TABLET PO SCH (08:25)
[2020-06-12] MEDS: SODIUM CHLORIDE 1 GM TABLET PO SCH (08:25)
[2020-06-12] MEDS: POTASSIUM CHLORIDE 20 MEQ TAB.ER.PRT PO SCH (08:26)
[2020-06-12] MEDS: MULTIVITAMINS/MINERALS TABLET PO SCH (08:26)
[2020-06-12] MEDS: SULFAMETH./TRIMETHOPRIM DS 800MG/160MG TABLET PO SCH (08:26)
[2020-06-12] MEDS: SODIUM CHLORIDE FLUSH 10ML SYR IVF SCH (08:26)
[2020-06-12] MEDS: THIAMINE 100MG TABLET PO SCH (08:26)
[2020-06-12] MEDS: BICTEGRAV/EMTRICIT/TENOFOV ALA TAB PO SCH (08:28)
[2020-06-12 13:12] VITALS: BP 121/74
== END 2020-06-12 13:50 | DRG 417 ==
LOC: ED 20:21 → EDIP 21:51 → 4NE 22:58 → 4WST 05-25 09:02 → 4EST 06-05 08:22 → 3N 06-08 00:25
PROVIDERS: ADMIT Internal Medicine; ATTEND Family Medicine
PROC: BF121ZZ Fluoroscopy of Gallbladder using Low Osmolar Contrast (ICD-10-PCS; 2020-05-18)
PROC: 0FT44ZZ Resection of Gallbladder, Percutaneous Endoscopic Approach (ICD-10-PCS; principal; 2020-05-18 12:30)
PROC: 009U3ZX Drainage of Spinal Canal, Percutaneous Approach, Diagnostic (ICD-10-PCS; 2020-05-19)
PROC: B01B1ZZ Fluoroscopy of Spinal Cord using Low Osmolar Contrast (ICD-10-PCS; 2020-05-19)
PROC: 009U3ZX Drainage of Spinal Canal, Percutaneous Approach, Diagnostic (ICD-10-PCS; 2020-06-01)
PROC: B01B1ZZ Fluoroscopy of Spinal Cord using Low Osmolar Contrast (ICD-10-PCS; 2020-06-01)
DX: K80.01 Calculus of gallbladder with acute cholecystitis with obstruction (principal); B38.4 Coccidioidomycosis meningitis; G04.90 Encephalitis and encephalomyelitis, unspecified; B20 Human immunodeficiency virus [HIV] disease; B58.9 Toxoplasmosis, unspecified; E87.1 Hypo-osmolality and hyponatremia; G93.49 Other encephalopathy; E87.6 Hypokalemia; Z20.822 Contact with and (suspected) exposure to COVID-19; D69.6 Thrombocytopenia, unspecified; E78.5 Hyperlipidemia, unspecified; D72.819 Decreased white blood cell count, unspecified; I45.9 Conduction disorder, unspecified; K82.A1 Gangrene of gallbladder in cholecystitis; R13.10 Dysphagia, unspecified; R47.1 Dysarthria and anarthria; R74.01 Elevation of levels of liver transaminase levels; Z82.3 Family history of stroke; Z82.49 Family history of ischemic heart disease and other diseases of the circulatory system; Z88.6 Allergy status to analgesic agent
CPT/HCPCS: 36415; 62270; 62328; 70553; 71045; 72141; 72157; 72158; 74181; 74300; 76700; 80048; 80053; 80061; 80069; 80074; 80307; 81001; 82247; 82248; 82945; 82962; 83036; 83605; 83735; 83930; 83935; 84100; 84157; 84300; 84443; 85025; 85651; 86140; 86361; 86480; 86592; 86635; 86701; 86702; 86777; 87040; 87070; 87205; 87210; 87338; 87529; 87535; 87536; 87635; 87806; 87899; 87903; 87904; 88304; 89051; 93005; 96374; 96375; 99285; C1729; G0378; J0133; J0561; J1100; J1450; J1885; J2250; J2405; J2543; J2550; J2704; J2795; J3010; J3360; J3480; Q0162; Q9967; A9575; G0475; J0360; J2060; J2270; J7030; J7040; J7050; J7120